=== PATIENT | female | born 1950 | race Caucasian/White ===

== ENCOUNTER 2017-11-13 10:50 | Emergency (ER) | payer OTHER, MEDICAID ==
[~2017-11-13] VITALS: Ht 165.1 cm; Wt 81.6 kg
[2017-11-13 10:50] VITALS: BP 178/72
[~2017-11-13 10:50] MED LIST: DEPER500 PO; LISI-420 PO; OXYB5TAB21 PO
[2017-11-13] MEDS ORDERED: LORazepam 2 MG/ML VIAL IVP ONE (11:55)
[2017-11-13 12:08] LABS: BASOPHILS # (AUTO) 0.1 K/uL (0.00-0.22); EOSINOPHILS # (AUTO) 0.1 K/uL (0-0.4); EOSINOPHILS % (AUTO) 1.9 % (0.0-4.0); HEMATOCRIT 38.8 % (36-48); HEMOGLOBIN 13.4 g/dL (12.0-16.0); LYMPHOCYTES # (AUTO) 1.5 K/uL (2.5-16.5); LYMPHOCYTES % (AUTO) 25.6 % (20.5-51.1); MEAN CORPUSCULAR HEMOGLOBIN 32 pg (27-31); MEAN CORPUSCULAR HGB CONC 35 g/dL (33-37); MONOCYTES # (AUTO) 0.5 K/uL (0.8-1.0); MONOCYTES % (AUTO) 8.6 % (1.7-9.3); NEUTROPHILS # (AUTO) 3.6 K/uL (1.8-7.7); NEUTROPHILS % (AUTO) 62.9 % (42.2-75.2); PLATELET COUNT (AUTO) 176 K/uL (140-450); RED BLOOD CELL COUNT(AUTO) 4.18 MIL/uL (4.20-5.40); RED CELL DISTRIBUTION WIDTH 13.7 % (11.6-13.7); WHITE BLOOD COUNT (AUTO) 5.8 K/uL (4.8-10.8)
[2017-11-13 12:22] LABS: ANION GAP 13.5 (8-16); CARBON DIOXIDE 26.9 mmol/L (21-32); POTASSIUM 4.4 mmol/L (3.5-5.1)
[2017-11-13 12:25] LABS: APPEARANCE,URINE CLEAR (CLEAR); BILIRUBIN,URINE NEGATIVE (NEGATIVE); BLOOD, URINE NEGATIVE (NEGATIVE); COLOR,URINE YELLOW (YELLOW); LEUKOCYTE ESTERASE ,URINE NEGATIVE (NEGATIVE); NITRITE, URINE NEGATIVE (NEGATIVE); PH,URINE 7.5 (5.0-9.0); UGLUCOSE NEGATIVE (NEGATIVE)
[2017-11-13 12:35] LABS: PROTHROMBIN TIME 10.5 secs (10.8-13.4)
[2017-11-13 12:37] LABS: ALBUMIN 3.8 g/dL (3.4-5.0); FREE T4 (FREE THYROXINE) 1.03 ng/dL (0.76-1.46); THYROID STIMULATING HORMONE 5.34 uIU/mL (0.34-3.74); TOTAL BILIRUBIN 0.3 mg/dL (0.0-1.0)
[2017-11-13 13:28] VITALS: BP 107/62
== END 2017-11-13 13:28 | disposition home or self-care (01) ==
LOC: MED 10:50
DX: R06.4 Hyperventilation (principal); F41.0 Panic disorder [episodic paroxysmal anxiety]; I12.9 Hypertensive chronic kidney disease with stage 1 through stage 4 chronic kidney disease, or unspecified chronic kidney disease; N18.4 Chronic kidney disease, stage 4 (severe); F31.9 Bipolar disorder, unspecified; E03.9 Hypothyroidism, unspecified; Z86.73 Personal history of transient ischemic attack (TIA), and cerebral infarction without residual deficits; Z79.899 Other long term (current) drug therapy; Z88.5 Allergy status to narcotic agent
CPT/HCPCS: 36415; 36600; 71045; 80053; 81003; 81025; 82550; 82803; 84439; 84443; 84479; 84484; 85025; 85379; 85610; 85730; 93005; 96374; 99285; J2060

== ENCOUNTER 2018-07-08 11:47 | Inpatient (IN) | payer OTHER, MEDICAID ==
[~2018-07-08] VITALS: Ht 162.6 cm; Wt 85.3 kg
[2018-07-08 11:50] VITALS: BP 150/70
--- NOTE | 2018-07-08 12:05 | NUR ---
PT. BIB FOR L SIDED NON RADIATING CHEST PAIN X 1 HOUR AGO THAT LASTED 1 MIN AND DESCRIBED 5/ 10 SHARP PAIN, PT. STATES " I COULDNT TALK FOR THAT ONE MINUTE AND SALIVA WAS COMING OUT . DENIES ANY N/V/D. DENIES ANY CHEST PAIN AT THIS TIME. PT. WARM AND DRY TO TOUCH. RR EVEN AND UNLABORED. ABLE TO SPEAK IN CLEAR SPEECH AND FULL AND COMPLETE SENTENCES. L SIDED TREMORS DUE TO STROKE. PATIENT STATES SHE CURRENTLY FEELS "100% NORMAL" MED HX: HTN , STROKE ( 3 YEARS AGO) ALLERGIES : NONE
[2018-07-08] MEDS ORDERED: NACL 0.9% 500 ML IV SCH (12:09)
--- NOTE | 2018-07-08 12:35 | NUR ---
Note undone in EDM - 07/08/18 at 1235 by ANDREW PT. BIB FOR L SIDED NON RADIATING CHEST PAIN X 1 HOUR AGO THAT LASTED 1 MIN AND DESCRIBED 5/ 10 SHARP PAIN, PT. STATES " I COULDNT TALK FOR THAT ONE MINUTE AND SALIVA WAS COMING OUT . DENIES ANY N/V/D. DENIES ANY CHEST PAIN AT THIS TIME. PT. WARM AND DRY TO TOUCH. RR EVEN AND UNLABORED. ABLE TO SPEAK IN CLEAR SPEECH AND FULL AND COMPLETE SENTENCES. L SIDED TREMORS DUE TO STROKE. PATIENT STATES SHE CURRENTLY FEELS "100% NORMAL" MED HX: HTN , STROKE ( 3 YEARS AGO) ALLERGIES : NONE
[2018-07-08 13:11] LABS: EOSINOPHILS # (AUTO) 0.1 K/uL (0-0.4); LYMPHOCYTES # (AUTO) 1.4 K/uL (2.5-16.5); MEAN CORPUSCULAR HEMOGLOBIN 33 pg (27-31); MONOCYTES # (AUTO) 0.5 K/uL (0.8-1.0); NEUTROPHILS # (AUTO) 2.5 K/uL (1.8-7.7); RED CELL DISTRIBUTION WIDTH 13.6 % (11.6-13.7); WHITE BLOOD COUNT (AUTO) 4.5 K/uL (4.8-10.8)
[2018-07-08 13:14] LABS: BASOPHILS % (AUTO) 0.5 % (0.0-2.0); EOSINOPHILS % (AUTO) 1.6 % (0.0-4.0); HEMATOCRIT 35.8 % (36-48); LYMPHOCYTES % (AUTO) 31.4 % (20.5-51.1); MEAN CORPUSCULAR HGB CONC 34 g/dL (33-37); MONOCYTES % (AUTO) 10.9 % (1.7-9.3); NEUTROPHILS % (AUTO) 55.6 % (42.2-75.2); PLATELET COUNT (AUTO) 165 K/uL (140-450); RED BLOOD CELL COUNT(AUTO) 3.69 MIL/uL (4.20-5.40)
[2018-07-08 13:24] LABS: ANION GAP 8.8 (8-16); CARBON DIOXIDE 32.1 mmol/L (21-32); CREATININE 1.6 mg/dL (0.6-1.3); POTASSIUM 3.9 mmol/L (3.5-5.1); PROTHROMBIN TIME 10.7 secs (10.8-13.4)
--- NOTE | 2018-07-08 13:27 | NUR ---
PATIENT AMB WITH STEADY GAIT TO RESTROOM ESCORTED BY HER SON. GIVEN CUP TO COLLECT URINE SAMPLE.
[2018-07-08 13:29] LABS: ALBUMIN 3.5 g/dL (3.4-5.0); TOTAL BILIRUBIN 0.4 mg/dL (0.0-1.0)
[2018-07-08] MEDS ORDERED: ASPIRIN 81 MG TAB.CHEW PO ONE (14:05)
[2018-07-08] MEDS ORDERED: NACL 0.9% 2,000 ML IV ONE (14:05)
--- NOTE | 2018-07-08 14:30 | NUR ---
FAMILY AT BEDSIDE. PATIENT STABLE.
[2018-07-08] MEDS ORDERED: KETOROLAC 15 MG/ML VIAL IVP PRN (14:50)
[2018-07-08] MEDS ORDERED: DOCUSATE SODIUM 100 MG GELCAP PO PRN (14:50)
[2018-07-08] MEDS ORDERED: ONDANSETRON 4 MG/2 ML VIAL IM/IVP PRN (14:50)
[2018-07-08] MEDS ORDERED: ACETAMINOPHEN 325 MG TAB PO PRN (14:50)
--- NOTE | 2018-07-08 15:00 | NUR ---
PATIENT GIVEN SOME CRACKERS AND PUDDING UPON REQUEST FOR FOOD.
[2018-07-08] MEDS ORDERED: ATA25 PO (15:33)
[2018-07-08] MEDS ORDERED: METO25TA14 PO (15:33)
[2018-07-08] MEDS ORDERED: APIX5TAB PO (15:33)
[2018-07-08 15:43] VITALS: BP 144/71
--- NOTE | 2018-07-08 15:43 | NUR ---
RECEIVED BEDSIDE REPORT FROM ER NURSE SAADIA. PT STABLE, AWAKE, AND ALERT AND ORIENTED X4. PT AMBULATING WITH STEADY GAIT. DENIES PAIN OR SOB. NO SIGNS OF DISTRESS NOTED. NO REDNESS, SWELLING, OR INFLAMMATION NOTED ON IV SITE. BED IN LOWEST POSITION. CALL SHUKLA WITHIN REACH. SAFETY MEASURES IN PLACE. PLAN OF CARE REVIEWED.
--- NOTE | 2018-07-08 15:45 | NUR ---
PATIENT TRANSPROTED WITH MONITORING BY EMT AND RN IN [facility] TO BED 121-A. REPORT GIVEN TO RN TANIKA COCHRAN FOR CONTINUED CARE UNDER THE CARE OF DR ECHEVERRIA. STABLE DURING TRANSFER.
[2018-07-08 15:46] VITALS: BP 144/69
[2018-07-08 15:49] VITALS: BP 144/65
[2018-07-08 16:10] LABS: CHOL/HDL RATIO 3.5 (1-4.5); PHOSPHORUS 2.8 mg/dL (2.5-4.9)
[2018-07-08 16:36] LABS: MAGNESIUM 1.8 mg/dL (1.8-2.4); THYROID STIMULATING HORMONE 4.39 uIU/mL (0.34-3.74)
--- NOTE | 2018-07-08 17:15 | NUR ---
PT REPORTED 10 SECOND EPISODE OF DYSPHAGIA. NEURO ASSESSMENT PERFORMED. REPORTED TO MD. PHYSICIAN TO SEE PATIENT.
[2018-07-08] MEDS ORDERED: ATI.5 PO (17:20)
[2018-07-08] MEDS ORDERED: DIVA250E1 PO (17:23)
[2018-07-08] MEDS ORDERED: ATORVASTATIN 20 MG TAB PO SCH (17:25)
[2018-07-08] MEDS ORDERED: ECOTRIN 81 MG TABEC PO SCH ×2 (17:25→18:50)
[2018-07-08] MEDS ORDERED: LISINOPRIL 20 MG TAB PO SCH (17:25)
[2018-07-08] MEDS ORDERED: MECLIZINE 25 MG TAB PO PRN (17:30)
--- NOTE | 2018-07-08 18:50 | NUR ---
ADMINISTERED SCHEDULED MEDICATIONS. PT TOLERATED WELL. SON AT BEDSIDE.
[2018-07-08] MEDS: NACL 0.9% 1,000 ML IV SCH (18:57)
--- NOTE | 2018-07-08 19:10 | NUR ---
ENDORSED PT TO ZAHRA TAYLOR FOR CONTINUITY OF CARE. PT STABLE, AWAKE, AND ALERT. SON AT THE BEDSIDE.
--- NOTE | 2018-07-08 19:11 | NUR ---
RECEIVED BEDSIDE REPORT FROM DAY SHIFT NURSE TANIKA RN, PT STABLE, NO DISTRESS NOTED, IV TO L AC 20G PATENT, INTACT, INFUSING NS @ 80ML/HR, PT ON ROOM AIR, NO SOB NOTED, FAMILY AT BEDSIDE, INITIAL ASSESSMENT DONE, ALL SAFETY PRECAUTION MET, CALL LIGHT WITHIN REACH, WILL CONTINUE TO MONITOR.
[2018-07-08] MEDS: LISINOPRIL 20 MG TAB PO SCH (19:16)
[2018-07-08] MEDS: ATORVASTATIN 20 MG TAB PO SCH (19:16)
[2018-07-08 20:00] VITALS: BP 151/73
[2018-07-08] MEDS: LORazepam 0.5 MG TAB PO SCH (20:44)
[2018-07-08] MEDS: METOPROLOL 25 MG TAB PO SCH (20:45)
[2018-07-08] MEDS: DIVALPROEX 250 MG TABEC PO SCH (20:45)
[2018-07-08] MEDS: APIXABAN 2.5 MG TAB PO SCH (20:50)
--- NOTE | 2018-07-08 20:50 | NUR ---
DUE MEDICATION ADMINISTER, PT TOLERATED WELL, NO DISTRESS NOTED, CALL LIGHT WITHIN REACH, WILL CONTINUE TO MONITOR.
[2018-07-09] VITALS: BP 135/61
--- NOTE | 2018-07-09 00:10 | NUR ---
CHECKED ON PT, PT SLEEPING, V/S TAKEN, WNL, CALL LIGHT WITHIN REACH, WILL CONTINUE TO MONITOR.
--- NOTE | 2018-07-09 02:17 | NUR ---
CHECKED ON PT, PT SLEEPING, NO DISTRESS NOTED, CALL LIGHT WITHIN REACH, WILL CONTINUE TO MONITOR.
[2018-07-09] MEDS: NACL 0.9% 1,000 ML IV SCH ×3 (03:16→21:04)
--- NOTE | 2018-07-09 03:55 | NUR ---
CHECKED ON PT, PT SLEEPING, NO DISTRESS NOTED, V/S TAKEN, WNL, CALL LIGHT WITHIN REACH, WILL CONTINUE TO MONITOR.
[2018-07-09 04:00] VITALS: BP 110/71
--- NOTE | 2018-07-09 07:20 | NUR ---
ENDORSED PT TO DAY SHIFT NURSE TIFFANY RN, PT STABLE, NO DISTRESS NOTED, CALL LIGHT WITHIN REACH
--- NOTE | 2018-07-09 07:21 | NUR ---
received bedside report from restaurant shift leader nurse. patient is awake, alert and orientedx4. no signs of distress on room air. skin is intact. fall risk protocol d/t weakness, hx cva and tremors. patient is continent. iv on l ac 20g infusing ns at 80. clean, dry and intact. tele monitor in place. bed in low position. call light within reach. will continue to monitor the patient.
[2018-07-09 08:00] VITALS: BP 136/70
--- NOTE | 2018-07-09 09:00 | NUR ---
PATIENT SITTING IN BED. NO SIGNS OF DISTRESS. WILL CONTINUE TO MONITOR THE PATIENT
[2018-07-09] MEDS: ECOTRIN 81 MG TABEC PO SCH (10:35)
[2018-07-09] MEDS: METOPROLOL 25 MG TAB PO SCH ×2 (10:37→21:00)
[2018-07-09] MEDS: APIXABAN 2.5 MG TAB PO SCH ×2 (10:38→21:03)
[2018-07-09] MEDS: DIVALPROEX 250 MG TABEC PO SCH ×2 (10:39→20:59)
[2018-07-09] MEDS: OXYBUTYNIN 5 MG TAB PO SCH (10:40)
[2018-07-09] MEDS: ATORVASTATIN 20 MG TAB PO SCH (10:40)
[2018-07-09] MEDS: LISINOPRIL 20 MG TAB PO SCH (10:40)
--- NOTE | 2018-07-09 10:47 | NUR ---
ADMINISTERED MEDS. PATIENT TOLERATED WELL. SHE TOOK ONE BY ONE. WILL CONTINUE TO MONITOR THE PATIENT. PATIENTS PHONE IS CHARGING AT THE NURSING STATION
[2018-07-09 12:00] VITALS: BP 128/62
--- NOTE | 2018-07-09 12:00 | NUR ---
PATIENT ACCIDENTALLY URINATED ON THE FLOOR ON THE WAY TO THE RESTROOM. CLEANSED PATIENT. GAVE AN UNDERWEAR AND NEW SOCKS. HOUSE KEEPING IN TO CLEAN THE FLOOR
[2018-07-09] MEDS ORDERED: ASPIRIN 325 MG TAB PO SCH (13:56)
--- NOTE | 2018-07-09 14:00 | NUR ---
family at bedside believe patient has slurred speech. patient tends to be a little slurred, dr arana in to see the patient.
--- NOTE | 2018-07-09 15:20 | NUR ---
administered as scheduled aspirin. patient tolerated well. patient ambulated to the restroom and back. told her next time to call because she has tremors and at risk for falls. i told her she needs to ambulate w assistance. she agreed.
[2018-07-09 16:00] VITALS: BP 113/62
--- NOTE | 2018-07-09 17:38 | NUR ---
PATIENT IS CURRENTLY EATING. NO SIGNS OF DISTRESS. WILL CONTINUE TO MONITOR THE PATIENT
--- NOTE | 2018-07-09 19:29 | NUR ---
GAVE BEDSIDE REPORT TO BANKER MASON NURSE. PATIENT ENDORSED IN STABLE CONDITION
--- NOTE | 2018-07-09 19:30 | NUR ---
RECEIVED BEDSIDE REPORT FROM DAY SHIFT NURSE TIFFANY RN, PT STABLE NO DISTRESS NOTED, IV TO L AC 20G PATENT, INTACT, INFUSING NS @ 80 ML/HR, INFUSING WELL, PT ON ROOM AIR, NO SOB NOTED, NO C/O PAIN, INITIAL ASSESSMENT DONE, ALL SAFETY PRECAUTION MET, CALL LIGHT WITHIN REACH, WILL CONTINUE TO MONITOR.
[2018-07-09 20:00] VITALS: BP 152/74
[2018-07-09] MEDS: LORazepam 0.5 MG TAB PO SCH (21:01)
--- NOTE | 2018-07-09 21:04 | NUR ---
DUE MEDICATION ADMINISTERED, PT TOLERATED WELL, NO DISTRESS NOTED, CALL LIGHT WITHIN REACH, WILL CONTINUE TO MONITOR.
--- NOTE | 2018-07-09 23:23 | NUR ---
CHECKED ON PT, PT SLEEPING, V/S TAKEN, WNL, NO DISTRESS NOTED, CALL LIGHT WITHIN REACH, WILL CONTINUE TO MONITOR.
[2018-07-10] VITALS: BP 128/71
[2018-07-10] MEDS ORDERED: amLODIPine 5 MG TAB PO SCH (03:25)
--- NOTE | 2018-07-10 03:43 | NUR ---
CHECKED ON PT, V/S TAKEN, PT STATED HAVING HEADACHE 5/10, PAIN MEDICATION PER DR ORDER ADMINISTERED, PT TOLERATED WELL, NO DISTRESS NOTED, CALL LIGHT WITHIN REACH, WILL CONTINUE TO MONITOR.
[2018-07-10 04:00] VITALS: BP 155/78
--- NOTE | 2018-07-10 07:22 | NUR ---
ENDORSED PT TO DAY SHIFT NURSE NICK RN, PT STABLE, NO DISTRESS NOTED, CALL LIGHT WITHIN REACH.
--- NOTE | 2018-07-10 07:23 | NUR ---
REPORT RECEIVED FROM FIRE FIGHTER CRASH FIRE AND RESCUE NURSE, PT AWAKE WITH EYES OPEN, RESP EVEN UNLABORED, SKIN WARM DRY COLOR WNL, PT APPEARS COMFORTABLE IN NAD, PLAN OF CARE REVIEWED, NO IMMEDIATE NEEDS AT THIS TIME, ALL SAFETY MEASURES IN PLACE, WILL CONTINUE TO MONITOR.
--- NOTE | 2018-07-10 07:38 | NUR ---
ENDORSED TO AM SHIFT FOR CONTINUITY OF CARE. PT IN STABLE CONDITION. Addendum: 07/11/18 at 0907 by Maryann Owen RN DELETE NOTE. WRONG DATE
[2018-07-10 07:55] LABS: BASOPHILS % (AUTO) 0.2 % (0.0-2.0); EOSINOPHILS # (AUTO) 0.1 K/uL (0-0.4); EOSINOPHILS % (AUTO) 1.3 % (0.0-4.0); HEMATOCRIT 34.8 % (36-48); HEMOGLOBIN 11.6 g/dL (12.0-16.0); LYMPHOCYTES # (AUTO) 1.3 K/uL (2.5-16.5); MEAN CORPUSCULAR HEMOGLOBIN 32 pg (27-31); MEAN CORPUSCULAR HGB CONC 33 g/dL (33-37); MEAN CORPUSCULAR VOLUME 96.9 fL (80-94); MONOCYTES # (AUTO) 0.8 K/uL (0.8-1.0); MONOCYTES % (AUTO) 9.8 % (1.7-9.3); NEUTROPHILS # (AUTO) 6.3 K/uL (1.8-7.7); NEUTROPHILS % (AUTO) 73.7 % (42.2-75.2); PLATELET COUNT (AUTO) 131 K/uL (140-450); RED BLOOD CELL COUNT(AUTO) 3.59 MIL/uL (4.20-5.40); RED CELL DISTRIBUTION WIDTH 13.5 % (11.6-13.7); WHITE BLOOD COUNT (AUTO) 8.6 K/uL (4.8-10.8)
[2018-07-10 08:00] VITALS: BP 173/88
--- NOTE | 2018-07-10 08:05 | NUR ---
PT EATING BREAKFAST WITH SON'T ASSISTANCE, PT SWALLOWS WELL WITHOUT PROBLEM, NO COUGHING OR CHOCKING NOTED, PT AOX4, SLOW SPEECH, NO FACIAL DROOPING NOTED, FACIAL MOVEMENTS SYMETRICAL, RIGHT HAND SLIGHTLY WEAKER HEEL SEAM RUBBER. WALKS WITH SLOW STEADY GAIT TO BATHROOM.
[2018-07-10 08:08] LABS: ANION GAP 10.8 (8-16); CARBON DIOXIDE 24.1 mmol/L (21-32); CREATININE 1.2 mg/dL (0.6-1.3); POTASSIUM 3.9 mmol/L (3.5-5.1)
[2018-07-10 08:09] LABS: MAGNESIUM 1.5 mg/dL (1.8-2.4); PHOSPHORUS 2.7 mg/dL (2.5-4.9)
--- NOTE | 2018-07-10 08:28 | NUR ---
PATIENT HAS BEEN SCREENED AND CATEGORIZED MODERATE NUTRITION RISK. PATIENT WILL BE SEEN WITHIN 3-5 DAYS OF ADMISSION. 07/11/[address]
[2018-07-10] MEDS: APIXABAN 2.5 MG TAB PO SCH ×2 (08:38→21:42)
[2018-07-10] MEDS: METOPROLOL 25 MG TAB PO SCH ×2 (08:38→21:41)
[2018-07-10] MEDS: LISINOPRIL 20 MG TAB PO SCH (08:39)
[2018-07-10] MEDS: ECOTRIN 81 MG TABEC PO SCH (08:39)
[2018-07-10] MEDS: OXYBUTYNIN 5 MG TAB PO SCH (08:39)
[2018-07-10] MEDS: ATORVASTATIN 20 MG TAB PO SCH (08:39)
[2018-07-10] MEDS: DIVALPROEX 250 MG TABEC PO SCH ×2 (08:40→21:43)
--- NOTE | 2018-07-10 08:45 | NUR ---
AM MEDS GIVEN, JACQUE PILLS WITHOUT PROBLEM. MRI QUESTIONERS DONE, CONTRAST CONSENT SIGNED.
[2018-07-10 12:00] VITALS: BP 142/66
--- NOTE | 2018-07-10 12:37 | NUR ---
CM NOTE RECEIVED ORDER FOR MRI OF THE BRAIN. CALLED AND LEFT VM FOR BRANCH OR DEPARTMENT CHIEF LIBRARIAN MARGARET, NO CALL BACK. PER BRAYAN OF [facility] MRI DEPT, BRANCH OR DEPARTMENT CHIEF LIBRARIAN MARGARET IS NOT AVAILABLE THIS WEEK, AND THEIR PICK UP ATTENDANT IS NOT AVAILABLE UNTIL JULY 12, 2018. FAXED FACESHEET, ORDER FOR MRI OF THE BRAIN, MRI MEDICAL HISTORY FORM, MRI PATIENT QUESTIONNAIRE, LAB RESULTS FOR BUN CREA AND GFR TO [facility] MRI DEPT [phone]. ROBERT OF [facility] MRI DEPT PH# [phone] AWARE OF PATIENT HAVING METAL DUE TO BILATERAL KNEE REPLACEMENTS AND PER ROBERT, THEIR PICK UP ATTENDANT HAS REVIEWED THE MRI MEDICAL HISTORY FORM, MRI PATIENT QUESTIONNAIRE, AND LAB RESULTS FOR BUN CREA AND GFR. PER ROBERT, THEIR PICK UP ATTENDANT WILL BE ABLE TO DO THE MRI OF THE BRAIN WITH THE EARLIEST AVAILABLE SCHEDULE AVAILABLE ON JULY 11, 2018 AT 8:[address] DEYANIRA JONES AWARE. PER DESTINEE OF [facility] PH# [phone], THE PATIENT WILL BE PICKED UP ACLS TRANSPORT AT 7:15 AM ON JULY 11, 2018 GOING TO [facility] FOR MRI OF THE BRAIN AT 8:30 AM, TO PASS BY THEIR ER FIRST, WAIT IN RETURN. [facility] TRANSPORTATION VOUCHER FORM FAXED TO [facility] [phone]. CHARGE NURSE LAM SEWELL.
--- NOTE | 2018-07-10 14:02 | NUR ---
S.T. BEDSIDE SWALLOW EVAL COMPLETED See report for details. Pt presents with minimal oral dysphagia c/b prolonged mastication. However, no overt s/s aspiration were observed w/ p.o. trials solids and thin liquids. Recommend: 1) Continue regular diet, thin liquids ok. 2) P.O. meds as tolerated. No further tx indicated at this time. DC to ns care. Time 5721-3444
--- NOTE | 2018-07-10 14:20 | NUR ---
TALITA NOTE RECEIVED A CALL FROM [facility] BRICK BURNER MEL PH# [phone] EXT [phone] REQUESTING TO FAX HER AGAIN THE LATEST BUN, CREATININE AND GFR RESULTS. FAXED AGAIN TO [facility] MRI DEPT [phone] THE LATEST BUN, CREATININE AND GFR RESULTS. DR. DEYANIRA JONES AWARE.
[2018-07-10] MEDS ORDERED: MAG SULF 2000 MG/WATER PREMIX 50 ML IV SCH (15:00)
--- NOTE | 2018-07-10 15:32 | NUR ---
PER DR MCMILLAN, OK TO TAKE OFF TELE MONITOR TO TAKE SHOWER, PT ESCORTED TO SHOWER, PT AMBULATES WITH STEADY GAIT, DENIES ANY DIZZINESS OR LIGHT HEADEDNESS. DAUGHTER ASSISTING PT WITH SHOWER.
[2018-07-10 16:00] VITALS: BP 153/67
--- NOTE | 2018-07-10 16:00 | NUR ---
BACK FROM SHOWER, PT RECONNECTED TO TELE, IVF RESTARTED.
--- NOTE | 2018-07-10 18:05 | NUR ---
PT AWAKE ALERT, SPEAKS WITH SLURRED SPEECH, OX4, RESP EVEN UNLABORED, SKIN WARM DRY COLOR WNL, DENIES PAIN OR DISCOMFORT, PT ABLE TO GET OUT OF BED WITH MINIMAL ASSIST, IVF INFUSING, IV ISTE WNL, PT DENIES ANY IMMEDIATE NEEDS, WILL CONTINUE TO MONITOR.
--- NOTE | 2018-07-10 19:22 | NUR ---
REPORT GIVEN TO COMPLIANCE COORDINATOR NURSE, PT IN STABLE CONDITION.
--- NOTE | 2018-07-10 19:23 | NUR ---
REPORT RECEIVED AM NURSE, PT AWAKE, AMBULATORY, CAN AMBULATE TO THE BATHROOM. BUT ALSO PLACED A BEDSIDE COMMODE FOR COMFORT TONIGHT. RESP EVEN UNLABORED, SKIN WARM DRY COLOR WNL,.HAS NO COMPLAINTS OF CHEST PAIN, PLACED IN LOW BED POSITION, MEASURES IN PLACE, WILL CONTINUE TO MONITOR.
[2018-07-10 20:00] VITALS: BP 155/71
--- NOTE | 2018-07-10 21:00 | NUR ---
PT MEDICATED ABLE TO TOLERATE MEDS WELL, CAN SWALLOW.
[2018-07-10] MEDS: LORazepam 0.5 MG TAB PO SCH (21:43)
--- NOTE | 2018-07-10 22:00 | NUR ---
PT GETTING READY FOR BED, PLACED IN A LOW BED POSITION WITH BED ALARMS ON
[2018-07-10] MEDS: NACL 0.9% 1,000 ML IV SCH (22:31)
[2018-07-11] VITALS: BP 130/65
--- NOTE | 2018-07-11 02:00 | NUR ---
PT VOIDED TOTAL 2X AT BEDSIDE COMMODE, YELLOW URINE, MODERATE IN AMOUNT.ASSISTED TO BED. FALL RISK IN PLACE
[2018-07-11 04:09] VITALS: BP 140/66
[2018-07-11 06:20] LABS: BASOPHILS % (AUTO) 0.5 % (0.0-2.0); EOSINOPHILS # (AUTO) 0.2 K/uL (0-0.4); HEMATOCRIT 31.4 % (36-48); HEMOGLOBIN 10.7 g/dL (12.0-16.0); LYMPHOCYTES # (AUTO) 1.7 K/uL (2.5-16.5); MEAN CORPUSCULAR HEMOGLOBIN 33 pg (27-31); MEAN CORPUSCULAR HGB CONC 34 g/dL (33-37); MEAN CORPUSCULAR VOLUME 96.7 fL (80-94); MONOCYTES # (AUTO) 0.6 K/uL (0.8-1.0); MONOCYTES % (AUTO) 8.8 % (1.7-9.3); NEUTROPHILS # (AUTO) 4.7 K/uL (1.8-7.7); NEUTROPHILS % (AUTO) 64.7 % (42.2-75.2); PLATELET COUNT (AUTO) 126 K/uL (140-450); RED BLOOD CELL COUNT(AUTO) 3.25 MIL/uL (4.20-5.40); RED CELL DISTRIBUTION WIDTH 13.5 % (11.6-13.7); WHITE BLOOD COUNT (AUTO) 7.3 K/uL (4.8-10.8)
[2018-07-11 06:26] LABS: ANION GAP 12.6 (8-16); CARBON DIOXIDE 26.4 mmol/L (21-32); CREATININE 1.3 mg/dL (0.6-1.3)
[2018-07-11 06:42] LABS: PHOSPHORUS 3.6 mg/dL (2.5-4.9)
--- NOTE | 2018-07-11 07:28 | NUR ---
ENDORSED TO AM SHIFT FOR CONTINUITY OF CARE. PT IN STABLE CONDITION.
--- NOTE | 2018-07-11 07:41 | NUR ---
PT PICKED UP BY [facility] FOR TRANSPORT TO [place] FOR MRI.
[2018-07-11] MEDS ORDERED: DIVALPROEX 250 MG TABEC PO SCH (09:00)
--- NOTE | 2018-07-11 10:54 | NUR ---
PT RETURNED FROM [place] AFTER MRI. PT RESTING IN BED COMFORTABLY. ALL SAFETY MEASURES IN PLACE.
[2018-07-11 11:15] VITALS: BP 187/78
[2018-07-11] MEDS: ECOTRIN 81 MG TABEC PO SCH (11:18)
[2018-07-11] MEDS: APIXABAN 2.5 MG TAB PO SCH (11:23)
[2018-07-11] MEDS: ATORVASTATIN 20 MG TAB PO SCH (11:24)
[2018-07-11] MEDS: METOPROLOL 25 MG TAB PO SCH (11:28)
[2018-07-11] MEDS: OXYBUTYNIN 5 MG TAB PO SCH (11:29)
[2018-07-11] MEDS: LISINOPRIL 20 MG TAB PO SCH (11:34)
--- NOTE | 2018-07-11 11:50 | NUR ---
PT ATE BREAKFAST AND TOOK SHOWER. ESCORTED BY DAUGHTER AND GRANDDAUGHTER
[2018-07-11] MEDS ORDERED: DIVA250E1 PO (14:57)
[2018-07-11] MEDS ORDERED: LISI-420 PO (14:57)
[2018-07-11] MEDS ORDERED: ATOR20TA40 PO (14:57)
[2018-07-11 15:12] VITALS: BP 142/60
--- NOTE | 2018-07-11 15:25 | NUR ---
CM NOTE RECEIVED ORDER FOR HOME HEALTH WITH [facility] FOR PT AND OT. FAXED FACESHEET, ORDER FOR HH, LIST OF MEDS, PT EVAL NOTES TO [facility]. PER AMBER OF [facility]# [phone], THEY ARE ACCEPTING THE PATIENT AND THEY HAVE A NURSE TO SEE THE PATIENT TOMORROW. DR. DEYANIRA JONES AND NICK SWEENEY AWARE.
--- NOTE | 2018-07-11 16:55 | NUR ---
DC INSTRUCTIONS WENT OVER WITH PT AND HER SON. PT AND HER SON ACKNOWLEDGED UNDERSTANDING ALL INSTRUCTIONS GIVEN. IV IN LEFT FOREARM DC. CATH TIP INTACT. BLEEDING CONTROLLED. ASSISTED PT TO CAR IN WHEELCHAIR. PT LEFT W ALL HER BELONGINGS
== END 2018-07-11 16:55 | disposition home health service (06) | DRG 73 ==
LOC: MED 11:47 → MTU 14:52
PROVIDERS: ADMIT General Practice; ATTEND General Practice
PROC: 4A00X4Z Measurement of Central Nervous Electrical Activity, External Approach (ICD-10-PCS; principal; 2018-07-11)
DX: G90.8 Other disorders of autonomic nervous system (principal); N17.0 Acute kidney failure with tubular necrosis; I24.8 Other forms of acute ischemic heart disease; I69.354 Hemiplegia and hemiparesis following cerebral infarction affecting left non-dominant side; I10 Essential (primary) hypertension; E78.5 Hyperlipidemia, unspecified; E03.9 Hypothyroidism, unspecified; F31.9 Bipolar disorder, unspecified; F41.9 Anxiety disorder, unspecified; R13.19 Other dysphagia; Z96.653 Presence of artificial knee joint, bilateral; Z66 Do not resuscitate; R32 Unspecified urinary incontinence; E86.0 Dehydration; N32.81 Overactive bladder; E83.42 Hypomagnesemia; D64.9 Anemia, unspecified; D32.0 Benign neoplasm of cerebral meninges; I65.23 Occlusion and stenosis of bilateral carotid arteries; Z88.5 Allergy status to narcotic agent; Z79.899 Other long term (current) drug therapy; Z87.442 Personal history of urinary calculi; Z82.49 Family history of ischemic heart disease and other diseases of the circulatory system; G40.909 Epilepsy, unspecified, not intractable, without status epilepticus
CPT/HCPCS: 36415; 70450; 71045; 80048; 80053; 82150; 83036; 83605; 83690; 83735; 83880; 84100; 84439; 84443; 84484; 85025; 85610; 85730; 87040; 87081; 92610; 93005; 93880; 95816; 96360; 97110; 97116; 97530; 99285; J1885; J3475; J7030; Q0092

== ENCOUNTER 2018-08-10 09:40 | Emergency (ER) | payer OTHER, MEDICAID ==
[~2018-08-10] VITALS: Ht 165.1 cm; Wt 85.3 kg
[~2018-08-10 09:40] MED LIST changes: +APIX5TAB PO; +ATI.5 PO; +ATOR20TA40 PO; -DEPER500 PO; +DIVA250E1 PO; +METO25TA14 PO
[2018-08-10 10:10] VITALS: BP 130/64
--- NOTE | 2018-08-10 10:15 | NUR ---
68Y/F BIB WITH C/O PRODUCTIVE COUGH X 2 WKS, PT DENIES CHEST PAIN OR SOB. PT STATES SHE HAS A PROGRESSIVE COUGH DURING THE NIGHT WITH GREEN PHLEGM, KHAI WHEEZING HEARD IN THE LUNGS, PT SAT AT 99% AT THIS TIME, BED UP, VSS AT THIS TIME, ER MD MCFARLANE AND NOTIFIED OF PT STATUS.
[2018-08-10 10:44] LABS: BASOPHILS % (AUTO) 0.6 % (0.0-2.0); EOSINOPHILS # (AUTO) 0.1 K/uL (0-0.4); EOSINOPHILS % (AUTO) 1.5 % (0.0-4.0); HEMATOCRIT 36.7 % (36-48); HEMOGLOBIN 12.6 g/dL (12.0-16.0); LYMPHOCYTES # (AUTO) 1.6 K/uL (2.5-16.5); LYMPHOCYTES % (AUTO) 25.8 % (20.5-51.1); MEAN CORPUSCULAR HEMOGLOBIN 33 pg (27-31); MEAN CORPUSCULAR HGB CONC 34 g/dL (33-37); MEAN CORPUSCULAR VOLUME 95.6 fL (80-94); MONOCYTES # (AUTO) 0.6 K/uL (0.8-1.0); MONOCYTES % (AUTO) 9.8 % (1.7-9.3); NEUTROPHILS # (AUTO) 3.9 K/uL (1.8-7.7); NEUTROPHILS % (AUTO) 62.3 % (42.2-75.2); PLATELET COUNT (AUTO) 187 K/uL (140-450); RED BLOOD CELL COUNT(AUTO) 3.84 MIL/uL (4.20-5.40); RED CELL DISTRIBUTION WIDTH 14.4 % (11.6-13.7); WHITE BLOOD COUNT (AUTO) 6.2 K/uL (4.8-10.8)
[2018-08-10 10:54] LABS: ANION GAP 12.5 (8-16); CARBON DIOXIDE 28.6 mmol/L (21-32); CREATININE 1.6 mg/dL (0.6-1.3); POTASSIUM 4.1 mmol/L (3.5-5.1)
[2018-08-10 11:00] LABS: ALBUMIN 3.3 g/dL (3.4-5.0); TOTAL BILIRUBIN 0.6 mg/dL (0.0-1.0)
[2018-08-10] MEDS ORDERED: ALBUTEROL SULFATE/IPRATROPIU 3 ML SOL IH ONE (11:10)
--- NOTE | 2018-08-10 11:22 | NUR ---
[facility] THERAPY AND RESPIRATORY DRUG GIVEN ORDERED ENCOURAGED PATIENT FOR INTERMITTENT DEEP BREATHING DURING THERAPY
[2018-08-10 12:20] VITALS: BP 158/52
--- NOTE | 2018-08-10 12:20 | NUR ---
Patient discharged with v/s stable. Written and verbal after care instructions given and explained. Patient alert, oriented and verbalized understanding of instructions. Ambulatory with steady gait. All questions addressed prior to discharge. ID band removed. Patient advised to follow up with PMD. Rx of ALBUTEROL, TESSALON given. Patient educated on indication of medication including possible reaction and side effects. Opportunity to ask questions provided and answered.
== END 2018-08-10 12:20 | disposition home or self-care (01) ==
LOC: MED 09:40
DX: J06.9 Acute upper respiratory infection, unspecified (principal); I10 Essential (primary) hypertension; E03.9 Hypothyroidism, unspecified; Z88.5 Allergy status to narcotic agent; Z79.899 Other long term (current) drug therapy; Z86.73 Personal history of transient ischemic attack (TIA), and cerebral infarction without residual deficits
CPT/HCPCS: 36415; 71045; 80053; 83880; 85025; 93005; 94640; 99284; J7620

== ENCOUNTER 2018-10-15 17:09 | Emergency (ER) | payer OTHER, MEDICAID ==
[~2018-10-15] VITALS: Ht 165.1 cm; Wt 80.9 kg
[2018-10-15 17:22] VITALS: BP 152/101
--- NOTE | 2018-10-15 17:24 | NUR ---
PATIENT AMBULATED TO ER BED 8.
--- NOTE | 2018-10-15 17:30 | NUR ---
PT IS A 68 Y/O FEMALE WHO PRESENTS TO THE ED FOR MED REFILL. PT STATES THAT SHE HAS DEPRESSION AND TAKES DEPAKOTE 750MG. PT DENIES SI AT THIS TIME. PT DENIES PAIN AT THIS TIME. PT DENIES CP, SOB, N/V/D. PT AWAKE AND ALERT, RR EVEN/UNLABORED. PT REPOSITIONED FOR COMFORT, BED IN LOWEST POSITION. ER MD DR. MORENO NOTIFIED. WILL CONTINUE TO MONITOR.
[2018-10-15] MEDS ORDERED: DIVALPROEX 500 MG TABEC PO ONE (17:40)
[2018-10-15 18:00] VITALS: BP 148/92
--- NOTE | 2018-10-15 18:00 | NUR ---
Patient discharged with v/s stable. Written and verbal after care instructions given and explained. Patient alert, oriented and verbalized understanding of instructions. Ambulatory with steady gait. All questions addressed prior to discharge. ID band removed. Patient advised to follow up with PMD. Rx of DEPAKOTE 750MG given. Patient educated on indication of medication including possible reaction and side effects. Opportunity to ask questions provided and answered.
== END 2018-10-15 18:00 | disposition home or self-care (01) ==
LOC: MED 17:09
DX: F32.9 Major depressive disorder, single episode, unspecified (principal); I10 Essential (primary) hypertension; E03.9 Hypothyroidism, unspecified; Z76.0 Encounter for issue of repeat prescription; Z86.73 Personal history of transient ischemic attack (TIA), and cerebral infarction without residual deficits; Z88.5 Allergy status to narcotic agent; Z79.899 Other long term (current) drug therapy
CPT/HCPCS: 99283

== ENCOUNTER 2019-05-13 12:03 | Emergency (ER) | payer OTHER, MEDICAID ==
[~2019-05-13] VITALS: Ht 165.1 cm; Wt 80.7 kg
[~2019-05-13 12:03] MED LIST changes: -OXYB5TAB21 PO; +OXYB5TAB43 PO
[2019-05-13 12:07] VITALS: BP 125/54
--- NOTE | 2019-05-13 13:14 | NUR ---
PT AMBULATED TO ER BED 07
--- NOTE | 2019-05-13 13:33 | NUR ---
69/F TO ED WITH L LEG/THIGH PAIN. DENIES INURY OR TRAUMA. REPORTS PAIN 9/10 THROBBING AND INTERMITTENET. NO OBVIOUS DEFORMITY NOTED. CMS INTACT. IN BED FOR MSE.
--- NOTE | 2019-05-13 13:58 | NUR ---
DR BALDERAS EXAMINING PT AT BEDSIDE
[2019-05-13] MEDS ORDERED: NACL 0.9% 1,000 ML IV ONE (14:08)
[2019-05-13] MEDS ORDERED: ONDANSETRON 4 MG/2 ML VIAL IVP ONE (14:10)
[2019-05-13] MEDS ORDERED: MORPHINE SULFATE 4 MG/ML SYR IVP ONE (14:10)
[2019-05-13] MEDS ORDERED: KETOROLAC 30 MG/ML VIAL IVP ONE (14:10)
--- NOTE | 2019-05-13 14:25 | NUR ---
U/S TECH AT BEDSIDE.
--- NOTE | 2019-05-13 14:30 | NUR ---
PT AMB W/ STEADY GAIT TO BATHROOM TO PROVIDE URINE SAMPLE.
--- NOTE | 2019-05-13 14:42 | NUR ---
EMT AT BEDSIDE FOR EKG.
[2019-05-13] MEDS ORDERED: LACTULOSE 20 GM/30 ML UDC PO ONE (15:45)
[2019-05-13] MEDS ORDERED: BISACODYL 10 MG SUPP RC ONE (15:45)
[2019-05-13 15:59] LABS: BASOPHILS % (AUTO) 0.3 % (0.0-2.0); EOSINOPHILS # (AUTO) 0.1 K/uL (0-0.4); EOSINOPHILS % (AUTO) 1.3 % (0.0-4.0); HEMATOCRIT 34.3 % (36-48); HEMOGLOBIN 11.5 g/dL (12.0-16.0); LYMPHOCYTES # (AUTO) 2.3 K/uL (2.5-16.5); LYMPHOCYTES % (AUTO) 21.1 % (20.5-51.1); MEAN CORPUSCULAR HEMOGLOBIN 33 pg (27-31); MEAN CORPUSCULAR HGB CONC 34 g/dL (33-37); MEAN CORPUSCULAR VOLUME 98.7 fL (80-94); MONOCYTES # (AUTO) 0.7 K/uL (0.8-1.0); MONOCYTES % (AUTO) 6.2 % (1.7-9.3); NEUTROPHILS # (AUTO) 7.6 K/uL (1.8-7.7); NEUTROPHILS % (AUTO) 71.1 % (42.2-75.2); PLATELET COUNT (AUTO) 169 K/uL (140-450); RED BLOOD CELL COUNT(AUTO) 3.47 MIL/uL (4.20-5.40); RED CELL DISTRIBUTION WIDTH 13.4 % (11.6-13.7); WHITE BLOOD COUNT (AUTO) 10.7 K/uL (4.8-10.8)
[2019-05-13 16:32] LABS: ALBUMIN 3.2 g/dL (3.4-5.0); ANION GAP 12.9 (8-16); CARBON DIOXIDE 28.5 mmol/L (21-32); CREATININE 1.5 mg/dL (0.6-1.3); POTASSIUM 4.4 mmol/L (3.5-5.1); TOTAL BILIRUBIN 0.5 mg/dL (0.0-1.0)
[2019-05-13 16:33] LABS: APPEARANCE,URINE CLEAR (CLEAR); BILIRUBIN,URINE NEGATIVE (NEGATIVE); BLOOD, URINE NEGATIVE (NEGATIVE); COLOR,URINE YELLOW (YELLOW); LEUKOCYTE ESTERASE ,URINE NEGATIVE (NEGATIVE); NITRITE, URINE NEGATIVE (NEGATIVE); UGLUCOSE NEGATIVE (NEGATIVE)
[2019-05-13 16:33] LABS: PROTHROMBIN TIME 10.5 secs (10.8-13.4)
--- NOTE | 2019-05-13 17:10 | NUR ---
IV removed, catheter intact and site benign. Applied folded 4x4 gauze and tape to stop bleeding.
[2019-05-13 17:15] VITALS: BP 132/56
--- NOTE | 2019-05-13 17:15 | NUR ---
Patient discharged with v/s stable. Written and verbal after care instructions given and explained. Patient alert, oriented and verbalized understanding of instructions. Ambulatory with steady gait. All questions addressed prior to discharge. ID band removed. Patient advised to follow up with PMD. Rx of TRAMADOL, COLACE given. Patient educated on indication of medication including possible reaction and side effects. Opportunity to ask questions provided and answered.
== END 2019-05-13 17:15 | disposition home or self-care (01) ==
LOC: MED 12:03
DX: M79.652 Pain in left thigh (principal); K59.09 Other constipation; I12.9 Hypertensive chronic kidney disease with stage 1 through stage 4 chronic kidney disease, or unspecified chronic kidney disease; N18.9 Chronic kidney disease, unspecified; R74.8 Abnormal levels of other serum enzymes; E03.9 Hypothyroidism, unspecified; Z86.73 Personal history of transient ischemic attack (TIA), and cerebral infarction without residual deficits; Z98.890 Other specified postprocedural states; Z79.899 Other long term (current) drug therapy
CPT/HCPCS: 36415; 74176; 80053; 81003; 82150; 83690; 83735; 83880; 84484; 85025; 85379; 85610; 85730; 93005; 93971; 96374; 96375; 99284; J1885; J2270; J2405; J7030; Q0092

== ENCOUNTER 2019-06-09 13:19 | Emergency (ER) | payer OTHER, MEDICAID ==
[~2019-06-09] VITALS: Ht 162.6 cm; Wt 81.2 kg
[2019-06-09 13:25] VITALS: BP 114/60
--- NOTE | 2019-06-09 14:18 | NUR ---
Patient ambulated to bed 11 with family. RN evaluating patient at bedside.
--- NOTE | 2019-06-09 14:20 | NUR ---
69 y/o f presents to ER c/o productive cough x1 month. Cough is productive with green phlegm. Pt reports she has a loss of appetite and chills. Pt currently afebrile. Denies any pain. Pt reports shortness of breath due to cough. HOB elevated, bed in lowest position, bed rail up x1. Waiting for ERMD to evaluate pt. Allergies: NKA Med hx: HTN
--- NOTE | 2019-06-09 14:32 | NUR ---
Influenza swab collected and given to phleb
--- NOTE | 2019-06-09 14:37 | NUR ---
Dr. Loyola evaluating pt at bedside
[2019-06-09 15:30] VITALS: BP 114/60
--- NOTE | 2019-06-09 15:30 | NUR ---
Patient discharged with v/s stable. Written and verbal after care instructions given and explained. Patient alert, oriented and verbalized understanding of instructions. Ambulatory with steady gait. All questions addressed prior to discharge. ID band removed. Patient advised to follow up with PMD. Rx of Promethazine 6.25mg and Azithromycin 250mg given. Patient educated on indication of medication including possible reaction and side effects. Opportunity to ask questions provided and answered.
== END 2019-06-09 15:30 | disposition home or self-care (01) ==
LOC: MED 13:19
DX: J20.9 Acute bronchitis, unspecified (principal); I10 Essential (primary) hypertension; E07.9 Disorder of thyroid, unspecified; I63.9 Cerebral infarction, unspecified; Z79.899 Other long term (current) drug therapy
CPT/HCPCS: 71045; 87804; 99284

== ENCOUNTER 2020-03-17 09:11 | Inpatient (IN) | payer OTHER, MEDICAID, SELFPAY ==
[~2020-03-17] VITALS: Ht 165.1 cm; Wt 77.6 kg
[2020-03-17 09:19] VITALS: BP 127/66
--- NOTE | 2020-03-17 09:27 | NUR ---
BIBS from home with c/o vaginal bleeding/cramping x 2 days, 05/25 pain A, A, Ox4, cooperative, NKDA, PMH HTN, HLD, overactive bladder, post-menapausal Resp even and unlabored, in NAD, VVS Moving all exts w/o difficulty, HOB elevated Awaiting evaluation by MD, will continue to monitor Given urine cup for urine sample
--- NOTE | 2020-03-17 09:28 | NUR ---
PT AMB TO BED 4
--- NOTE | 2020-03-17 09:47 | NUR ---
Patient mentioned to MD that she has a history of atrial fibrillation and is on a blood thinner
[2020-03-17] MEDS ORDERED: NACL 0.9% 1,000 ML IV ONE (09:50)
[2020-03-17 10:08] LABS: BASOPHILS % (AUTO) 0.9 % (0.0-2.0); EOSINOPHILS % (AUTO) 0.9 % (0.0-4.0); HEMATOCRIT 31.7 % (36-48); HEMOGLOBIN 10.9 g/dL (12.0-16.0); LYMPHOCYTES # (AUTO) 1.4 K/uL (2.5-16.5); LYMPHOCYTES % (AUTO) 30.9 % (20.5-51.1); MEAN CORPUSCULAR HEMOGLOBIN 34 pg (27-31); MEAN CORPUSCULAR HGB CONC 34 g/dL (33-37); MEAN CORPUSCULAR VOLUME 98.7 fL (80-94); MONOCYTES # (AUTO) 0.4 K/uL (0.8-1.0); MONOCYTES % (AUTO) 9.1 % (1.7-9.3); NEUTROPHILS # (AUTO) 2.7 K/uL (1.8-7.7); NEUTROPHILS % (AUTO) 58.2 % (42.2-75.2); PLATELET COUNT (AUTO) 184 K/uL (140-450); RED BLOOD CELL COUNT(AUTO) 3.21 MIL/uL (4.20-5.40); RED CELL DISTRIBUTION WIDTH 13.4 % (11.6-13.7); WHITE BLOOD COUNT (AUTO) 4.6 K/uL (4.8-10.8)
[2020-03-17 10:26] LABS: ANION GAP 13.5 (8-16); CARBON DIOXIDE 23.9 mmol/L (21-32); CREATININE 2.4 mg/dL (0.6-1.3); POTASSIUM 4.4 mmol/L (3.5-5.1)
[2020-03-17 10:31] LABS: ALBUMIN 3.3 g/dL (3.4-5.0); TOTAL BILIRUBIN 0.6 mg/dL (0.0-1.0)
[2020-03-17 11:14] LABS: APPEARANCE,URINE CLEAR (CLEAR); BILIRUBIN,URINE NEGATIVE (NEGATIVE); BLOOD, URINE 2+ (NEGATIVE); COLOR,URINE YELLOW (YELLOW); LEUKOCYTE ESTERASE ,URINE NEGATIVE (NEGATIVE); NITRITE, URINE NEGATIVE (NEGATIVE); PH,URINE 6.5 (5.0-9.0); UGLUCOSE TRACE (NEGATIVE)
[2020-03-17 11:17] LABS: WBC,URINE 0-5 /HPF (0-5)
[2020-03-17] MEDS ORDERED: POTASSIUM CHLORIDE 10 MEQ TABER PO PRN (12:05)
[2020-03-17] MEDS ORDERED: ONDANSETRON 4 MG/2 ML VIAL IM/IVP PRN (12:05)
[2020-03-17] MEDS ORDERED: LORazepam 2 MG/ML VIAL IM/IVP PRN (12:05)
[2020-03-17] MEDS ORDERED: ACETAMINOPHEN 325 MG TAB PO PRN (12:05)
[2020-03-17] MEDS ORDERED: DOCUSATE SODIUM 100 MG GELCAP PO PRN (12:05)
[2020-03-17] MEDS ORDERED: MAG SULF 2000 MG/WATER PREMIX 50 ML IV PRN (12:05)
[2020-03-17] MEDS ORDERED: HYDROcodone/APAP 5/325 MG 1 TAB TAB PO PRN (12:05)
[2020-03-17] MEDS ORDERED: MORPHINE SULFATE 2 MG/ML SYR IVP PRN (12:05)
[2020-03-17] MEDS ORDERED: ZOLPIDEM 5 MG TAB PO PRN (12:05)
--- NOTE | 2020-03-17 12:17 | NUR ---
Malorie swab collected and given to priscilla vaz at this time
--- NOTE | 2020-03-17 12:22 | NUR ---
windows server support technician at bedside.
[2020-03-17] MEDS ORDERED: AMLO10TA PO (12:29)
[2020-03-17] MEDS ORDERED: AMIO100T PO (12:29)
[2020-03-17] MEDS ORDERED: APR10 PO (12:29)
[2020-03-17 12:36] LABS: MAGNESIUM 2.2 mg/dL (1.8-2.4); PHOSPHORUS 3.7 mg/dL (2.5-4.9); THYROID STIMULATING HORMONE 2.03 uIU/mL (0.34-3.74)
[2020-03-17] MEDS: NACL 0.9% 1,000 ML IV SCH (12:45)
--- NOTE | 2020-03-17 12:49 | NUR ---
Dr. Hill is evaluating the patient at bedside.
--- NOTE | 2020-03-17 13:50 | NUR ---
Patient ambulated to the washroom to void, tolerated well
[2020-03-17 13:57] LABS: BARBITURATE, URINE NEGATIVE ng/ml (NEG <=200); BENZODIAZEPINE, URINE NEGATIVE ng/mL (NEG <=200); CANNABINOID, URINE NEGATIVE ng/mL (NEG <=50); COCAINE, URINE NEGATIVE ng/mL (NEG <=300); OPIATE, URINE NEGATIVE ng/mL (NEG <=2000); PHENCYCLIDINE SCREEN,URINE NEGATIVE ng/mL (NEG <=25)
--- NOTE | 2020-03-17 14:01 | NUR ---
Patient given cardiac diet for lunch, patient ate 100% of meal tray, tolerated well
--- NOTE | 2020-03-17 15:55 | NUR ---
Detailed report given to ZAHRA Olivares for room 106. Background given, meds in ED, questions answered
--- NOTE | 2020-03-17 16:26 | NUR ---
Patient not going to M/S room at this time. Possibly after change of shift
--- NOTE | 2020-03-17 16:30 | NUR ---
Patient discharged with v/s stable. Written and verbal after care instructions given and explained. Patient alert, oriented and verbalized understanding of instructions. Ambulatory with steady gait. All questions addressed prior to discharge. ID band removed. Patient advised to follow up with PMD. Rx of MACROBID AND ZOFRAN given. Patient educated on indication of medication including possible reaction and side effects. Opportunity to ask questions provided and answered.
--- NOTE | 2020-03-17 16:58 | NUR ---
Called ZAHRA Olivares that CN on M/S is accepting patient now. Patient transfered to med/surg room 106A via [facility] with CHONG Bhat to transfer, IV patent.
--- NOTE | 2020-03-17 17:00 | NUR ---
RECEIVED REPORT FROM EMERGENCY ROOM NURSE FOR CONTINUITY OF CARE. PATIENT IN STABLE CONDITION. RESPIRATIONS EVEN AND UNLABORED, ROOM AIR. IV INTACT AND PATENT. SAFETY MEASURES IN PLACE. BED IN LOW POSITION. CALL LIGHT WITHIN REACH. BED ALARM ON. WILL CONTINUE TO MONITOR.
--- NOTE | 2020-03-17 17:45 | NUR ---
MRSA NARES TAKEN TO LAB.
--- NOTE | 2020-03-17 19:32 | NUR ---
RECEIVED BEDSIDE SHIFT REPORT FROM DAY SHIFT NURSE. PT IN BED RESTING. PT AAOX4, AMBULATORY, AND ABLE TO MAKE NEEDS KNOWN. RESPIRATIONS EVEN ND UNLABORED TO ROOM AIR. ABDOMEN IS SOFT AND NON-TENDER. SKIN IS WARM, DRY, AND INTACT. PT WITH IV ACCESS ON LEFT WRIST G20, IVF INFUSING WELL. PT DENIES ANY PAIN OR DISCOMFORT. NO REQUESTS MADE. PT BEING MONITORED FOR BLEEDING. SAFETY MEASURES IN PLACE. CALL LIGHT WITHIN REACH. WILL CONTINUE TO MONITOR.
[2020-03-17] MEDS: METOPROLOL 25 MG TAB PO SCH (20:25)
[2020-03-17] MEDS: lisinopriL 20 MG TAB PO SCH (20:25)
[2020-03-17] MEDS: LORazepam 0.5 MG TAB PO SCH (20:25)
[2020-03-17] MEDS: DIVALPROEX 250 MG TABEC PO SCH (20:26)
[2020-03-17] MEDS: APIXABAN 2.5 MG TAB PO SCH (20:30)
--- NOTE | 2020-03-17 20:30 | NUR ---
VITAL SIGNS STABLE. SCHEDULED MEDS GIVEN ORDERED. PT DENIES ANY PAIN OR DISCOMFORT AT THIS TIME. NO REQUESTS MADE. SAFETY MEASURES IN PLACE. CALL LIGHT WITHIN REACH. WILL CONTINUE TO MONITOR.
--- NOTE | 2020-03-17 21:37 | NUR ---
REPORT GIVEN TO CHARGE NURSE FOR CONTINUITY OF CARE
--- NOTE | 2020-03-17 21:40 | NUR ---
RECEIVED REPORT FROM GARRET SWEENEY.PT IS TAKING REST.CONDITION IS STABLE.CALL LIGHT IN REACH.NO C/O PAIN NOW.IVF INFUSING WELL.WILL CONTINUE MONITORING.
[2020-03-18] VITALS: BP 127/58
--- NOTE | 2020-03-18 | NUR ---
sleeping w/o s/s of any distress.ivf is in progress.call light within reach.will cont.monitoring.
[2020-03-18 06:01] LABS: BASOPHILS % (AUTO) 0.9 % (0.0-2.0); EOSINOPHILS # (AUTO) 0.1 K/uL (0-0.4); EOSINOPHILS % (AUTO) 1.9 % (0.0-4.0); HEMATOCRIT 30.7 % (36-48); HEMOGLOBIN 10.4 g/dL (12.0-16.0); LYMPHOCYTES # (AUTO) 1.3 K/uL (2.5-16.5); LYMPHOCYTES % (AUTO) 35.4 % (20.5-51.1); MEAN CORPUSCULAR HEMOGLOBIN 33 pg (27-31); MEAN CORPUSCULAR HGB CONC 34 g/dL (33-37); MEAN CORPUSCULAR VOLUME 98.6 fL (80-94); MONOCYTES # (AUTO) 0.3 K/uL (0.8-1.0); MONOCYTES % (AUTO) 8.9 % (1.7-9.3); NEUTROPHILS % (AUTO) 52.9 % (42.2-75.2); PLATELET COUNT (AUTO) 153 K/uL (140-450); RED BLOOD CELL COUNT(AUTO) 3.12 MIL/uL (4.20-5.40); RED CELL DISTRIBUTION WIDTH 13.3 % (11.6-13.7); WHITE BLOOD COUNT (AUTO) 3.8 K/uL (4.8-10.8)
[2020-03-18 06:30] LABS: ANION GAP 14.5 (8-16); CARBON DIOXIDE 20.9 mmol/L (21-32); CREATININE 1.7 mg/dL (0.6-1.3); POTASSIUM 4.4 mmol/L (3.5-5.1)
[2020-03-18 06:39] LABS: CHOL/HDL RATIO 2.9 (1-4.5); MAGNESIUM 1.9 mg/dL (1.8-2.4); PHOSPHORUS 3.1 mg/dL (2.5-4.9)
--- NOTE | 2020-03-18 07:38 | NUR ---
SLEPT WELL.NO C/O PAIN.NO HEAVY BLEEDING.ENDORSED TO AM RN IN STABLE CONDITION.
--- NOTE | 2020-03-18 07:40 | NUR ---
RECEIVED PT FROM NIGHT DIONICIO BURGESS, PT IS AWAKE AND LYING ON THE BED WITH SIDE RAILS UP AND CALL LIGHT WITHIN REACH, PT IS ON RA, AOX4, DENIES PAIN, WITH IV LINE ON THE LEFT WRIST G. 22 WITH NS INFUSING AT 60ML/HR, INTACT, PATENT, NO SIGN OF DISTRESS NOTED, WILL CONTINUE TO MONITOR PT.
[2020-03-18 08:00] VITALS: BP 118/66
[2020-03-18 08:09] LABS: T4 (THYROXINE) 9.7 ug/dL (4.5-12.0)
--- NOTE | 2020-03-18 08:40 | NUR ---
DISCHARGE PLANNING: THIS IS A 70 Y/O FEMALE PATIENT FROM HOME, WHO CAME IN DUE TO VAGINAL BLEEDING. PAST MEDICAL HISTORY INCLUDE HTN, HLD, OVERACTIVE BLADDER, A FIB, HEMORRHOIDS, STROKE, NEPHROLITHIASIS, BILATERAL TOTAL KNEE REPLACEMENT. INITIAL DIAGNOSIS OF TEMITOPE, CURRENT LABS INCLUDE WBC 3.8, H/H 10.4/30.7, NA/K 140/4.4, BUN/CREA 32/1.7. OB GYNE CONSULT IN PLACE, NOT SEEN YET. TRANSVAGINAL US SHOWED MULTIPLE UTERINE WALL LESIONS, THICKENED ENDOMETRIUM. DC PLAN BACK TO HOME ONCE STABLE.
[2020-03-18] MEDS: METOPROLOL 25 MG TAB PO SCH ×2 (09:00→21:10)
[2020-03-18] MEDS: hydrALAZINE 10 MG TAB PO SCH ×3 (09:00→17:20)
[2020-03-18] MEDS: AMIODARONE 200 MG TAB PO SCH (09:00)
[2020-03-18] MEDS: ASCORBIC ACID 500 MG/5 ML ORASYR GT SCH (09:16)
[2020-03-18] MEDS: ATORVASTATIN 20 MG TAB PO SCH (09:17)
[2020-03-18] MEDS: FERROUS SULFATE 325 MG TABEC PO SCH (09:17)
[2020-03-18] MEDS: OXYBUTYNIN 5 MG TAB PO SCH (09:18)
[2020-03-18] MEDS: DIVALPROEX 250 MG TABEC PO SCH ×2 (09:18→20:41)
[2020-03-18] MEDS: lisinopriL 20 MG TAB PO SCH ×2 (09:19→21:00)
--- NOTE | 2020-03-18 09:19 | NUR ---
SCHEDULED MORNING MEDICATIONS WERE GIVEN TO PT, PARAMETERS WERE CHECKED (PULSE 58 MANUALLY CHECKED, BP 124/65) O2 SAT 99%, RR 18, PT TOLERATED ALL ORAL MEDICATIONS WELL, MEDICATION TEACHINGS WERE GIVE AND PT VERBALIZED UNDERSTANDING, WILL CONTINUE TO MONITOR PT.
[2020-03-18] MEDS: amLODIPine 5 MG TAB PO SCH (09:20)
[2020-03-18] MEDS: NACL 0.9% 1,000 ML IV SCH ×2 (09:22→21:25)
[2020-03-18] MEDS: APIXABAN 2.5 MG TAB PO SCH ×2 (09:25→20:33)
--- NOTE | 2020-03-18 09:25 | NUR ---
PT WAS GIVEN THE ELIQUIS, PLATELET IS 153, TOLERATED, MEDICATION TEACHING WAS GIVEN TO PT AND VERBALIZED UNDERSTANDING, AND WILL MONITOR PT.
--- NOTE | 2020-03-18 10:23 | NUR ---
PATIENT HAS BEEN SCREENED AND CATEGORIZED LOW NUTRITION RISK. PATIENT WILL BE SEEN WITHIN 7 DAYS OF ADMISSION. 03/23/[address]
--- NOTE | 2020-03-18 11:00 | NUR ---
PT'S SANITARY PAD HAS SCANT BLOOD ON IT.
--- NOTE | 2020-03-18 11:13 | NUR ---
SOCIAL WORK NOTE: Patient's Orientation Unable To Assess Information Provided By DARSHAN RAMIREZ - Comments SW WAS UNABLE TO MEET PATIENT AT BEDSIDE DUE TO MEDICAL CONDITION. SW COMPLETED ASSESSMENT WITH PATIENT'S . SW USED PROCUREMENT SERVICES MANAGER DELFINA [id number]. Development And Planning Engineer, Realtionship and Phone Number DARSHAN RAMIREZ [phone] Healthcare Power of Research Engineer Marine [employer] No Does Patient Have a POLST No Identifying Problems No Social Work Triggers Is A Social Work Consult Needed No Mandate Report Filed No Explanation Of Identifying Problems PATIENT IS A 70-YEAR-OLD FEMALE ADMITTED FOR TEMITOPE. PATIENT HAS PMHX OF HEMORRHOIDS AND A-FIB. REPORTED NO SUBSTANCE ABUSE OR MENTAL HEALTH HISTORY. Admitted From Home Pre-Admission Level Of Functioning Status Independent/Ambulatory Prior Resources/Services Used In Last 12 Months No Prior Resources Used Prior DME No Prior DME Used Dialysis Comments N/A Living Situation Lives W/Significant Other House Patient Had Caregiver No Home Support No Caregiver Issues Financial Issues No Known Financial Issue Referral To The Financial Counselor Needed No Factors/Needs No D/C Needs Identified Explanation And Or Other Factors Affecting/Possible DC Needs PATIENT'S WILL COORDINATE TRANSPORTATION AT DISCHARGE. Pt/Rep Participated In Discharge Plan Yes Patient/Family Agress With Discharge Plan Yes Discharge Plan Comments TENTATIVE DISCHARGE PLAN IS FOR PATIENT TO RETURN HOME.
--- NOTE | 2020-03-18 13:10 | NUR ---
PT SCHEDULED BP MED WAS NOT GIVEN, BP 128/64, PULSE 54, WILL CONTINUE TO MONITOR PT.
--- NOTE | 2020-03-18 14:30 | NUR ---
PT 'S SANITARY PAD HAS A SCANT AMOUNT OF BLOOD NOTED.
[2020-03-18 16:00] VITALS: BP 150/57
--- NOTE | 2020-03-18 17:20 | NUR ---
PT WAS GIVEN THE SCHEDULED BP MEDICATION NOW, BP IS 150/57, PULSE IS 60, O2 SATURATION IS 98%, WILL MONITOR PT.
--- NOTE | 2020-03-18 19:47 | NUR ---
ENDORSED PT TO RECREATION ATTENDANT SUPERVISOR NURSE FOR CONTINUITY OF CARE.
--- NOTE | 2020-03-18 19:50 | NUR ---
RECEIVED REPORT FROM STARLA SWEENEY DAYSHIFT NURSE AT BEDSIDE FOR CONTINUITY OF CARE, PT IN STABLE CONDITION.
[2020-03-18] MEDS: LORazepam 0.5 MG TAB PO SCH (20:40)
--- NOTE | 2020-03-18 21:00 | NUR ---
PT LYING IN BED DENIES ANY PAIN AT THIS TIME. IV SITE ON R HAND INTACT AND FLUSHED PATENT. PT HAS NORMAL SALINE RUNNING AT 60MLS/HR. V/S FOLLOWS: T 97.1 P 60 R 18 B/P 125/83 02 98% ON ROOM AIR. PT GIVEN SCHEDULED MEDS OF ATIVAN, ELIQUIS AND LOPRESSOR. PT ONLY WANTED TO TAKE 1 TABLET OF HER DEPAKOTE SAYING THAT SHE TAKES 2 IN THE AM AND 2 IN THE VICKI AT HOME, PT TOOK 1 TAB AT 250MG. 2 TABS WERE RETURNED TO [facility]. ALSO ZESTRIL WAS HELD DUE TO PT B/P 125/83 ( IN NORMAL RANGE) EDUCATION REGARDING MEDICATION, PURPOSES AND SIDE EFFECTS PROVIDED AT BEDSIDE, PT VERBALIZED UNDERSTANDING. PT HAS SCANT VAGINAL BLEEDING NOTED. ALL REQUESTED NEEDS ATTENDED BY STAFF, AND ALL UNIVERSAL FALLS PREVENTION IN PLACE.
[2020-03-19] VITALS: BP 109/52
--- NOTE | 2020-03-19 | NUR ---
PT IN BED ASLEEP, NO S/S OF PAIN OR DISTRESS NOTED. V/S FOLLOWS: T 97.0 P 60 R 20 B/P 109/52 02 98%, IV SITE INTACT AND RUNNING N/S AT 60, ALL FALLS PREVENTION IN PLACE.
--- NOTE | 2020-03-19 01:30 | NUR ---
PT ASLEEP, NEW BAG OF NORMAL SALINE HUNG AND CONTINUES TO RUN NORMAL SALINE AT 60MLS/HR. A FALLS PREVENTION IN PLACE.
--- NOTE | 2020-03-19 03:00 | NUR ---
PT IN BED ASLEEP NO S/S OF PAIN OR DISTRESS NOTED ALL UNIVERSAL FALLS PROTOCOL IN PLACE.
--- NOTE | 2020-03-19 06:09 | NUR ---
PT AWAKE REQUESTED NEEDS ATTENDED. LAMBERTY CONSULT DONE. PT DENIES ANY PAIN OR DISTRESS. ALL FALLS PROTOCOL IN PLACE.
--- NOTE | 2020-03-19 07:25 | NUR ---
RECEIVED PT FROM CHALK EXTRUDING MACHINE OPERATOR NURSE, PT IS AWAKE AND ALERT, IV NOTED TO R HAND 22G, NO SIGNS IF DISTRESS NOTED, ON ROOM AIR, SAFETY AND FALL PRECAUTIONS IN PLACE, WILL CONTINUE TO MONITOR
[2020-03-19 07:27] LABS: BASOPHILS % (AUTO) 0.6 % (0.0-2.0); EOSINOPHILS # (AUTO) 0.1 K/uL (0-0.4); HEMATOCRIT 28.8 % (36-48); LYMPHOCYTES # (AUTO) 1.8 K/uL (2.5-16.5); LYMPHOCYTES % (AUTO) 41.2 % (20.5-51.1); MEAN CORPUSCULAR HEMOGLOBIN 34 pg (27-31); MEAN CORPUSCULAR HGB CONC 35 g/dL (33-37); MEAN CORPUSCULAR VOLUME 98.2 fL (80-94); MONOCYTES # (AUTO) 0.4 K/uL (0.8-1.0); MONOCYTES % (AUTO) 9.1 % (1.7-9.3); NEUTROPHILS # (AUTO) 2.1 K/uL (1.8-7.7); NEUTROPHILS % (AUTO) 47.1 % (42.2-75.2); PLATELET COUNT (AUTO) 151 K/uL (140-450); RED BLOOD CELL COUNT(AUTO) 2.93 MIL/uL (4.20-5.40); RED CELL DISTRIBUTION WIDTH 13.3 % (11.6-13.7); WHITE BLOOD COUNT (AUTO) 4.4 K/uL (4.8-10.8)
[2020-03-19 07:48] LABS: ANION GAP 15.4 (8-16); CREATININE 1.4 mg/dL (0.6-1.3); POTASSIUM 4.4 mmol/L (3.5-5.1)
[2020-03-19 08:00] VITALS: BP 115/68
[2020-03-19 08:01] LABS: MAGNESIUM 1.8 mg/dL (1.8-2.4); PHOSPHORUS 2.8 mg/dL (2.5-4.9)
[2020-03-19] MEDS: AMIODARONE 200 MG TAB PO SCH (09:00)
[2020-03-19] MEDS: hydrALAZINE 10 MG TAB PO SCH ×2 (09:00→13:00)
[2020-03-19] MEDS: FERROUS SULFATE 325 MG TABEC PO SCH (09:29)
[2020-03-19] MEDS: METOPROLOL 25 MG TAB PO SCH (09:31)
[2020-03-19] MEDS: amLODIPine 5 MG TAB PO SCH (09:32)
[2020-03-19] MEDS: OXYBUTYNIN 5 MG TAB PO SCH (09:33)
[2020-03-19] MEDS: DIVALPROEX 250 MG TABEC PO SCH (09:33)
[2020-03-19] MEDS: ATORVASTATIN 20 MG TAB PO SCH (09:33)
[2020-03-19] MEDS: ASCORBIC ACID 500 MG/5 ML ORASYR GT SCH (09:35)
[2020-03-19] MEDS: lisinopriL 20 MG TAB PO SCH (09:35)
--- NOTE | 2020-03-19 09:35 | NUR ---
PT WAS GIVEN THE SCHEDULED AM MEDICATIONS, TOLERATED, PARAMETERS CHECKED, WILL MONITOR PT.
[2020-03-19] MEDS: APIXABAN 2.5 MG TAB PO SCH (09:39)
--- NOTE | 2020-03-19 11:40 | NUR ---
PT WAS SEEN AMBULATING FROM THE BATHROOM TO BED, SANI=TARY PAD WAS SEEN AND SCANT OF BLOOD WAS NOTYED.
--- NOTE | 2020-03-19 13:00 | NUR ---
SCHEDULED BP MEDICATION WAS NOT GIVEN D/T BP IS 113/68, PULSE IS 78.
[2020-03-19] MEDS: NACL 0.9% 1,000 ML IV SCH (14:05)
--- NOTE | 2020-03-19 14:12 | NUR ---
DISCHARGED PT TO HOME ACCOMPANIED BY SON AND DAUGHTER, DISCHARGED TEACHINGS AND INSTRUCTIONS GIVEN TO PT AND PT VERBALIZED UNDERSTANDING, OB-VICE PRESIDENT FOR PHILANTHROPY CONTACT NO WAS GIVEN TO PT WELL, IV LINE AND ARM BAND REMOVED, PT IS STABLE AT THIS TIME.
--- NOTE | 2020-03-19 21:38 | NUR ---
LATE ENTRY- NORMAL SALINE 0.9% DISCONTINUED AT 1700
== END 2020-03-19 14:15 | disposition home or self-care (01) | DRG 760 ==
LOC: MED 09:11 → MTU 12:01
DX: D25.9 Leiomyoma of uterus, unspecified (principal); N17.0 Acute kidney failure with tubular necrosis; E44.1 Mild protein-calorie malnutrition; J98.11 Atelectasis; N93.9 Abnormal uterine and vaginal bleeding, unspecified; Z20.828 Contact with and (suspected) exposure to other viral communicable diseases; I48.91 Unspecified atrial fibrillation; I10 Essential (primary) hypertension; E78.5 Hyperlipidemia, unspecified; Z96.653 Presence of artificial knee joint, bilateral; D72.819 Decreased white blood cell count, unspecified; N32.81 Overactive bladder; D53.9 Nutritional anemia, unspecified; D50.0 Iron deficiency anemia secondary to blood loss (chronic); N85.00 Endometrial hyperplasia, unspecified; R25.1 Tremor, unspecified; Z68.28 Body mass index [BMI] 28.0-28.9, adult; Z79.899 Other long term (current) drug therapy; Z86.73 Personal history of transient ischemic attack (TIA), and cerebral infarction without residual deficits; Z87.442 Personal history of urinary calculi; Z82.49 Family history of ischemic heart disease and other diseases of the circulatory system
CPT/HCPCS: 36415; 71045; 76830; 80048; 80053; 80305; 81001; 82150; 82607; 82746; 83036; 83690; 83735; 83880; 84100; 84134; 84436; 84443; 84484; 85025; 85045; 85610; 86886; 86900; 86901; 87081; 96360; 99285; J7030; Q0092

== ENCOUNTER 2021-10-10 12:12 | Emergency (ER) | payer OTHER, MEDICAID ==
[~2021-10-10] VITALS: Ht 165.1 cm; Wt 83.5 kg
[~2021-10-10 12:12] MED LIST changes: +AMIO100T PO; +AMLO10TA PO; +APR10 PO; -ATI.5 PO; -LISI-420 PO; +LISI-487 PO; -OXYB5TAB43 PO
[2021-10-10 12:13] VITALS: BP 139/83
--- NOTE | 2021-10-10 12:43 | NUR ---
PT AMB TO ER BED 4
--- NOTE | 2021-10-10 12:43 | NUR ---
PT AMB TO BED 4.
--- NOTE | 2021-10-10 12:44 | NUR ---
BIB SON C/O 01/23 LEFT FOREHEAD PAIN, SWELLING S/P LOSS OF BALANCE & FALL 1 HOUR AGO. DENIES LOC.PMH: HTN, HLD, OVERACTIVE BLADDER. DENIES N/V/D. AAOX4 WITH EVEN AND UNSTEADY GAIT; LUNGS CLEAR BL; HR EVEN AND REGULAR; PT DENIES ANY FEVER, CP, SOB, OR COUGH AT THIS TIME; PATIENT POSITIONED FOR COMFORT; HOB ELEVATED; BEDRAILS UP X1; BED DOWN. ER MD MADE AWARE OF PT STATUS.
[2021-10-10] MEDS ORDERED: KETOROLAC 60 MG/2 ML VIAL IM ONE ×2 (13:10→13:16)
--- NOTE | 2021-10-10 13:25 | NUR ---
2ND CALL TO CT-PT IS READY.
--- NOTE | 2021-10-10 13:37 | NUR ---
PT SENT TO CT VIA W/C WITH TECH
--- NOTE | 2021-10-10 13:58 | NUR ---
PT TAKEN TO ER BED 4 VIA W/C FROM CT.
[2021-10-10 15:10] VITALS: BP 127/75
== END 2021-10-10 15:17 | disposition home or self-care (01) ==
LOC: MED 12:12
DX: S00.12XA Contusion of left eyelid and periocular area, initial encounter (principal); S09.90XA Unspecified injury of head, initial encounter; I10 Essential (primary) hypertension; Z86.73 Personal history of transient ischemic attack (TIA), and cerebral infarction without residual deficits; Z87.448 Personal history of other diseases of urinary system; Z98.890 Other specified postprocedural states; Z79.899 Other long term (current) drug therapy; Z79.01 Long term (current) use of anticoagulants; W01.198A Fall on same level from slipping, tripping and stumbling with subsequent striking against other object, initial encounter; Y92.89 Other specified places as the place of occurrence of the external cause; Y93.89 Activity, other specified; Y99.8 Other external cause status
CPT/HCPCS: 70450; 70486; 96372; 99284; J1885

== ENCOUNTER 2022-02-24 10:44 | Emergency (ER) | payer OTHER, MEDICAID ==
[~2022-02-24] VITALS: Ht 160 cm; Wt 78.0 kg
[2022-02-24 10:53] VITALS: BP 197/88
--- NOTE | 2022-02-24 10:56 | NUR ---
pt ambulated to bed 11
--- NOTE | 2022-02-24 11:07 | NUR ---
HUMAN ANATOMY TEACHER AT BEDSIDE
[2022-02-24] MEDS ORDERED: PROM118S5 PO (12:34)
[2022-02-24] MEDS ORDERED: LORA10TA19 PO (12:34)
--- NOTE | 2022-02-24 12:35 | NUR ---
72/F PRESENTS TO ED WITH C/O PRODUCTIVE COUGH AND CONGESTION. PATIENT REPORTS TAKING TYLENOL FOR HER COUGH WITH MILD RELIEF, DENIES FEVERS, CHILLS, N/V/D OR RECENT SICK CONTACTS.
[2022-02-24 12:47] VITALS: BP 197/88
--- NOTE | 2022-02-24 12:47 | NUR ---
Patient discharged with v/s stable. Written and verbal after care instructions ABOUT UPPER RESPIRATORY INFECTION given and explained. Patient alert, oriented and verbalized understanding of instructions. Ambulatory with steady gait. All questions addressed prior to discharge. ID band removed. Patient advised to follow up with PMD. Rx of CLARITIN AND PROMETHAZINE-DM SYRUP given. Patient educated on indication of medication including possible reaction and side effects. Opportunity to ask questions provided and answered.
== END 2022-02-24 12:47 | disposition home or self-care (01) ==
LOC: MED 10:44
DX: J20.8 Acute bronchitis due to other specified organisms (principal); R05.9 Cough, unspecified; R09.89 Other specified symptoms and signs involving the circulatory and respiratory systems; I10 Essential (primary) hypertension; Z87.442 Personal history of urinary calculi; Z79.899 Other long term (current) drug therapy; Z98.890 Other specified postprocedural states
CPT/HCPCS: 71045; 99283; Q0092

== ENCOUNTER 2022-04-27 13:45 | Emergency (ER) | payer OTHER, MEDICAID ==
[~2022-04-27] VITALS: Ht 165.1 cm; Wt 80.8 kg
[~2022-04-27 13:45] MED LIST changes: +LORA10TA19 PO; +PROM118S5 PO
[2022-04-27 14:00] VITALS: BP_SYST 192; BP_SYST 212; BP_DIAS 110; BP_DIAS 87
--- NOTE | 2022-04-27 14:32 | NUR ---
C/O LEFT EYE PAIN,REDNESS, SWELLING AND URINARY BURNING X 2 DAYS.
[2022-04-27] MEDS ORDERED: FLUORESCEIN OPTH STRIP 1 MG OP ONE (15:00)
[2022-04-27] MEDS ORDERED: TETRACAINE HCL/PF 0.5% OPTH 4 ML BTL OP ONE (15:00)
--- NOTE | 2022-04-27 15:35 | NUR ---
72YO FEMALE PT C/O ACHING 8/10 L EYE PAIN X2DAYS. EYE PRESENTS RED AND WATERY. NO FOREIGN OBJECT OR DISCHARGE NOTED. PERRLA .ALSO C/O DYSURIA +BLOOD AND CHILLS. DENIES RELIEF AFTER MOTRIN. DENIES CHEST PAIN, N/V/D, FEVER OR CHILLS . PT AAOX4, NO VISIBLE DISTRESS. RESPIRATIONS EVEN AND UNLABORED. HX:HTN, RENAL DISEASE NKA
[2022-04-27 17:00] VITALS: BP 210/93
[2022-04-27 17:10] LABS: APPEARANCE,URINE CLOUDY (CLEAR); BILIRUBIN,URINE NEGATIVE (NEGATIVE); BLOOD, URINE NEGATIVE (NEGATIVE); COLOR,URINE YELLOW (YELLOW); LEUKOCYTE ESTERASE ,URINE 3+ (NEGATIVE); NITRITE, URINE POSITIVE (NEGATIVE); UGLUCOSE NEGATIVE (NEGATIVE)
[2022-04-27] MEDS ORDERED: hydrALAZINE 25 MG TAB PO STA ×2 (17:10→17:29)
--- NOTE | 2022-04-27 17:12 | NUR ---
MADE AWARE OF PT BP
[2022-04-27] MEDS ORDERED: hydrALAZINE 10 MG TAB ONE ×3 (17:16→17:20)
[2022-04-27 17:27] LABS: RBC,URINE NONE SEEN /HPF (0-5)
[2022-04-27] MEDS ORDERED: hydrALAZINE 20 MG/ML VIAL IM ONE (17:30)
[2022-04-27] MEDS ORDERED: hydrALAZINE 25 MG TAB PO SCH (17:35)
[2022-04-27] MEDS ORDERED: CEPH-588 PO (17:38)
[2022-04-27] MEDS ORDERED: OFLOS LEFT EYE (17:38)
--- NOTE | 2022-04-27 17:51 | NUR ---
Patient discharged with v/s stable. Written and verbal after care instructions FOR BACTERIAL CONJUCTIVITIS AND UTI given and explained. Patient alert, oriented and verbalized understanding of instructions. Ambulatory with steady gait. All questions addressed prior to discharge. ID band removed. Patient advised to follow up with PMD. Rx of KELFEX AND OLFOXACIN given. Opportunity to ask questions provided and answered. Addendum: 04/27/22 at 1753 by PHSEP MADE AWARE OF PT BP
--- NOTE | 2022-04-27 17:55 | NUR ---
The patient's care was reviewed and supervised by [facility], RN.
--- NOTE | 2022-04-30 18:00 | NUR ---
LATE ENTRY. RECEIVED POSITIVE URINE CULTURE. FORM GIVEN TO DR BARRY. TREATMENT APPROPRIATE. FORM PLACED IN BINDER.
== END 2022-04-27 17:58 | disposition home or self-care (01) ==
LOC: MED 13:45
DX: H10.9 Unspecified conjunctivitis (principal); N39.0 Urinary tract infection, site not specified; I10 Essential (primary) hypertension; Z79.899 Other long term (current) drug therapy; Z98.890 Other specified postprocedural states
CPT/HCPCS: 81001; 87086; 99284

== ENCOUNTER 2022-11-18 19:10 | Emergency (ER) | payer OTHER, MEDICAID ==
[~2022-11-18] VITALS: Ht 167.6 cm; Wt 76.2 kg
[~2022-11-18 19:10] MED LIST changes: +CEPH-588 PO; +OFLOS LEFT EYE
[2022-11-18 19:40] VITALS: BP 171/93; PULSE 92; RESP 16; TEMP 97.2; O2SAT 96
--- NOTE | 2022-11-18 19:49 | NUR ---
pt to bed 03 ambulatory
--- NOTE | 2022-11-18 19:55 | NUR ---
URINE SAMPLE TAKEN TO LAB
[2022-11-18 20:00] LABS: APPEARANCE,URINE CLEAR (CLEAR); BILIRUBIN,URINE NEGATIVE (NEGATIVE); BLOOD, URINE NEGATIVE (NEGATIVE); COLOR,URINE YELLOW (YELLOW); LEUKOCYTE ESTERASE ,URINE 2+ (NEGATIVE); NITRITE, URINE NEGATIVE (NEGATIVE); UGLUCOSE NEGATIVE (NEGATIVE)
--- NOTE | 2022-11-18 20:09 | NUR ---
72 YO F BIB SELF C/O URINARY FREQUENCY AND BURNING WHEN URINATING. PT STATES PAIN WHEN URINATING X 2 DAYS. HX UTI WITH LAST UTI 2 YEARS AGO. PAIN 0/10 BUT 2/10 WHEN URINATING. PT STATES SPOTS OF BLOOD ON UNDERWEAR BUT NO BLOOD IN URINE. PT LTYING IN BED WITH NO S/S PAIN OR DISTRESS. CALL LIGHT WITHIN REACH. NKDA HX: CVA
[2022-11-18 20:11] LABS: RBC,URINE 0-5 /HPF (0-5)
[2022-11-18 20:12] VITALS: O2SAT 96
[2022-11-18] MEDS ORDERED: CEPH-588 PO ×2 (20:18→20:54)
--- NOTE | 2022-11-18 20:43 | NUR ---
Niranjan bueno in [facility] - 11/18/22 at 2100 by [facility] PT BACK FROM CT
--- NOTE | 2022-11-18 20:47 | NUR ---
Patient discharged with v/s stable. Written and verbal after care instructions given and explained. Patient verbalized understanding. Ambulatory with steady gait. All questions addressed prior to discharge. Advised to follow up with PMD.
== END 2022-11-18 20:47 | disposition home or self-care (01) ==
LOC: MED 19:10
DX: N39.0 Urinary tract infection, site not specified (principal); I10 Essential (primary) hypertension; Z79.899 Other long term (current) drug therapy
CPT/HCPCS: 81001; 87086; 99283

== ENCOUNTER 2022-11-27 19:52 | Inpatient (IN) | payer OTHER, MEDICAID ==
[~2022-11-27] VITALS: Ht 167.6 cm; Wt 73.9 kg
[2022-11-27 20:05] VITALS: BP 167/65; PULSE 77; RESP 20; TEMP 97.8
[2022-11-27] MEDS ORDERED: NACL 0.9% 1,000 ML IV ONE ×2 (20:10→21:40)
--- NOTE | 2022-11-27 20:18 | NUR ---
PT. TO BED 04 AMBULATORY
[2022-11-27] MEDS ORDERED: ONDANSETRON 4 MG/2 ML VIAL IVP ONE (20:30)
--- NOTE | 2022-11-27 20:30 | NUR ---
pt resting on bed, A/ox4. not in distress. on monitor, ' call light within reach. pt instructed on how to use call light. pt returned demonstration. all needs met at this time. bed locked in lowest position. side rails x2 for safety. no standard id wrist band available. noted by charge nurse. verified pt name and date of when doing bedside and giving medication
[2022-11-27 20:52] LABS: BASOPHILS % (AUTO) 0.5 % (0.0-2.0); EOSINOPHILS # (AUTO) 0.1 K/uL (0-0.4); EOSINOPHILS % (AUTO) 1.3 % (0.0-4.0); HEMATOCRIT 31.9 % (36-48); HEMOGLOBIN 11.2 g/dL (12.0-16.0); LYMPHOCYTES # (AUTO) 1.3 K/uL (2.5-16.5); LYMPHOCYTES % (AUTO) 28.3 % (20.5-51.1); MEAN CORPUSCULAR HEMOGLOBIN 34 pg (27-31); MEAN CORPUSCULAR HGB CONC 35 g/dL (33-37); MEAN CORPUSCULAR VOLUME 95.8 fL (80-94); MONOCYTES # (AUTO) 0.5 K/uL (0.8-1.0); NEUTROPHILS # (AUTO) 2.8 K/uL (1.8-7.7); NEUTROPHILS % (AUTO) 58.9 % (42.2-75.2); PLATELET COUNT (AUTO) 172 K/uL (140-450); RED BLOOD CELL COUNT(AUTO) 3.33 MIL/uL (4.20-5.40); RED CELL DISTRIBUTION WIDTH 14.1 % (11.6-13.7); WHITE BLOOD COUNT (AUTO) 4.7 K/uL (4.8-10.8)
[2022-11-27 21:05] LABS: ALBUMIN 3.5 g/dL (3.4-5.0); ASPARTATE AMINOTRANSFERASE 27 U/L (15-37); CARBON DIOXIDE 28.1 mmol/L (21-32); CREATININE 1.4 mg/dL (0.6-1.3); GLUCOSE 88 mg/dL (74-106); LIPASE 193 U/L (73-393); TOTAL BILIRUBIN 0.5 mg/dL (0.0-1.0); UREA NITROGEN, BLOOD 17 mg/dL (7-18)
[2022-11-27 21:24] LABS: ANION GAP 10.5 (8-16); CHLORIDE 85 mmol/L (98-107); POTASSIUM 4.6 mmol/L (3.5-5.1)
[2022-11-27 21:27] LABS: SODIUM SERUM 119 mmol/L (136-145)
--- NOTE | 2022-11-27 21:38 | NUR ---
URINE TO LAB
[2022-11-27 21:40] LABS: APPEARANCE,URINE CLEAR (CLEAR); BILIRUBIN,URINE NEGATIVE (NEGATIVE); BLOOD, URINE NEGATIVE (NEGATIVE); COLOR,URINE YELLOW (YELLOW); LEUKOCYTE ESTERASE ,URINE TRACE (NEGATIVE); NITRITE, URINE NEGATIVE (NEGATIVE); UGLUCOSE NEGATIVE (NEGATIVE)
--- NOTE | 2022-11-27 21:53 | NUR ---
Niranjan bueno in [facility] - 11/27/22 at 2153 by VANDANA X-RAY AT BEDSIDE
[2022-11-27 21:59] LABS: RBC,URINE 0-5 /HPF (0-5); URINE AMORPHOUS URATE 1+ /HPF (None Seen)
[2022-11-27] MEDS ORDERED: HYDR100T49 PO (22:03)
[2022-11-27] MEDS ORDERED: DIVA250E1 PO (22:03)
[2022-11-27] MEDS: NACL 0.9% 1,000 ML IV SCH (23:00)
--- NOTE | 2022-11-27 23:50 | NUR ---
pt. complained of 8/10 pelvic pain.
--- NOTE | 2022-11-27 23:51 | NUR ---
informed dr. Aguayo of 12/[address] Aguayo provided telephone order morphine 2mg iv once, laboratory of sodium and CMP. read back telephone order. telephone order carried out
[2022-11-27] MEDS ORDERED: MORPHINE SULFATE 2 MG/ML SYR IVP ONE (23:55)
[2022-11-28] MEDS ORDERED: MORPHINE SULFATE 2 MG/ML SYR ONE ×2 (00:05→07:14)
--- NOTE | 2022-11-28 00:06 | NUR ---
morphine 2mg iv given as ordered by dr. Aguayo for pelvic pain
[2022-11-28] MEDS ORDERED: cefTRIAXone 1,000 MG VIAL ONE (00:56)
[2022-11-28 01:09] LABS: ALBUMIN 2.7 g/dL (3.4-5.0); ANION GAP 10.5 (8-16); ASPARTATE AMINOTRANSFERASE 25 U/L (15-37); CARBON DIOXIDE 24.8 mmol/L (21-32); CHLORIDE 92 mmol/L (98-107); CREATININE 1.2 mg/dL (0.6-1.3); GLUCOSE 84 mg/dL (74-106); POTASSIUM 4.3 mmol/L (3.5-5.1); SODIUM SERUM 123 mmol/L (136-145); TOTAL BILIRUBIN 0.5 mg/dL (0.0-1.0); UREA NITROGEN, BLOOD 17 mg/dL (7-18)
--- NOTE | 2022-11-28 03:00 | NUR ---
pt resting on bed, A/ox4. not in distress. on monitor, ' call light within reach. all needs met at this time. bed locked in lowest position. side rails x2 for safety
--- NOTE | 2022-11-28 05:52 | NUR ---
informed dr. Aguayo of 10/23 pelvic pain of pt.
[2022-11-28 06:38] LABS: ANION GAP 11.8 (8-16); CARBON DIOXIDE 22.8 mmol/L (21-32); CHLORIDE 95 mmol/L (98-107); CREATININE 1.2 mg/dL (0.6-1.3); GLUCOSE 82 mg/dL (74-106); POTASSIUM 4.6 mmol/L (3.5-5.1); SODIUM SERUM 125 mmol/L (136-145); UREA NITROGEN, BLOOD 16 mg/dL (7-18)
--- NOTE | 2022-11-28 07:00 | NUR ---
Dr. owusu made a telephone order to give pt morphine 2mg iv once for 12/23 pelvic pain Addendum: 11/28/22 at [email or web address] owusu made a telephone order to give pt morphine 2mg iv once for 10/23 pelvic pain
[2022-11-28] MEDS ORDERED: MORPHINE SULFATE 2 MG/ML SYR IVP ONE (07:10)
--- NOTE | 2022-11-28 07:15 | NUR ---
morphine 2mg iv given as ordered by Dr. Aguayo
--- NOTE | 2022-11-28 07:26 | NUR ---
Pt report given to alex hoyt. alex hoyt verbalized understanding and no further question. Transfer of care at this time.
--- NOTE | 2022-11-28 07:26 | NUR ---
TRANSFER OF CARE GIVEN BY JASMYN SWEENEY.
[2022-11-28 07:33] VITALS: O2SAT 99
--- NOTE | 2022-11-28 07:33 | NUR ---
PT SITTING UPRIGHT, AWAKE, NAD NOTED. STATES SHE IS A LITTLE WEAK BUT BETTER THAN PAST FEW HOURS. PT DENIES PAIN , N, V, D, CHILLS , FEVER, FLU SYMPTOMS, CHANGE IN LIFE STYLE, URINARY SYMPTOMS, MAR. SAFETY MAINTAINED. HX: HTN, HIGH CHOLESTEROL, STROKE NKA
--- NOTE | 2022-11-28 09:20 | NUR ---
Patient will be admitted to care of [facility]. Admited to TELE 126-B. Will go to room 126B. Belongings list completed. Report to JAYESH SWEENEY.
[2022-11-28 09:50] VITALS: PULSE 65; PULSE 79; RESP 18; O2SAT 99
--- NOTE | 2022-11-28 10:16 | NUR ---
The patient's care was reviewed and supervised by YODIT CLIFFORD RN.
[2022-11-28 10:22] LABS: ANION GAP 11.1 (8-16); CARBON DIOXIDE 25.8 mmol/L (21-32); CHLORIDE 96 mmol/L (98-107); CREATININE 1.1 mg/dL (0.6-1.3); GLUCOSE 81 mg/dL (74-106); POTASSIUM 4.9 mmol/L (3.5-5.1); SODIUM SERUM 128 mmol/L (136-145); UREA NITROGEN, BLOOD 15 mg/dL (7-18)
[2022-11-28] MEDS ORDERED: DIVALPROEX 250 MG TABEC PO SCH (11:07)
[2022-11-28] MEDS ORDERED: METOPROLOL 25 MG TAB PO SCH (11:07)
[2022-11-28] MEDS ORDERED: lisinopriL 20 MG TAB PO SCH (11:08)
[2022-11-28] MEDS ORDERED: ATORVASTATIN 20 MG TAB PO SCH (11:08)
[2022-11-28] MEDS: APIXABAN 2.5 MG TAB PO SCH ×2 (11:26→20:41)
[2022-11-28] MEDS: NACL 0.9% 1,000 ML IV SCH (11:29)
--- NOTE | 2022-11-28 11:29 | NUR ---
PATIENT HAS BEEN SCREENED AND CATEGORIZED LOW NUTRITION RISK. PATIENT WILL BE SEEN WITHIN 7 DAYS OF ADMISSION. 11/27/22-12/04/[address]
[2022-11-28 12:41] LABS: ANION GAP 10.7 (8-16); CARBON DIOXIDE 25.4 mmol/L (21-32); CHLORIDE 98 mmol/L (98-107); CREATININE 1.1 mg/dL (0.6-1.3); GLUCOSE 74 mg/dL (74-106); POTASSIUM 5.1 mmol/L (3.5-5.1); SODIUM SERUM 129 mmol/L (136-145); UREA NITROGEN, BLOOD 12 mg/dL (7-18)
[2022-11-28] MEDS ORDERED: NON-FORMULARY ITEM (Hydralazine HCl (Hydralazine Hcl) 1 TAB) PO SCH (13:00)
[2022-11-28 16:00] VITALS: BP 154/81; PULSE 50; RESP 18; TEMP 97.5
[2022-11-28 16:42] LABS: ANION GAP 10.3 (8-16); CARBON DIOXIDE 24.2 mmol/L (21-32); CHLORIDE 97 mmol/L (98-107); GLUCOSE 115 mg/dL (74-106); POTASSIUM 4.5 mmol/L (3.5-5.1); SODIUM SERUM 127 mmol/L (136-145); UREA NITROGEN, BLOOD 12 mg/dL (7-18)
--- NOTE | 2022-11-28 18:46 | NUR ---
PT RESTING IN BED, AAO x4, RESPIRATIONS EVEN AND UL ON RA. DENIES PAIN/DISCOMFORT, DENIES N/V, PT CONSUMED LUNCH AND DINNER. NO SIGNIFICANT CHANGES NOTED THROUGHOUT SHIFT. IV SITE WNL. ALL NEEDS MET. SAFETY MEASURES IN PLACE, CALL LIGHT IN REACH.
--- NOTE | 2022-11-28 19:13 | NUR ---
REPORT GIVEN TO PM NURSE FOR CONTINUITY OF CARE.
--- NOTE | 2022-11-28 19:30 | NUR ---
RECEIVED PT FROM DAY RN FOR CONTINUITY CARE. PT IS STABLE.ABLE TO MAKE NEEDS KNOWN. NO S/SX OF DISTRESS. ALL PRECAUTIONS IN PLACE. CALL LIGHT WITHIN REACH. WILL CONTINUE TO MONITOR.
[2022-11-28 20:00] VITALS: BP 160/82; PULSE 50; PULSE 52; RESP 18; TEMP 97.1; O2SAT 99
[2022-11-28] MEDS: lisinopriL 20 MG TAB PO SCH (20:40)
[2022-11-28] MEDS: METOPROLOL 25 MG TAB PO SCH (20:40)
--- NOTE | 2022-11-28 21:00 | NUR ---
SCHEDULED MEDICATIONS GIVEN. PT TOLERATED WELL. WILL CONTINUE TO MONITOR.
[2022-11-28 21:08] LABS: ANION GAP 9.6 (8-16); CARBON DIOXIDE 25.4 mmol/L (21-32); CHLORIDE 99 mmol/L (98-107); CREATININE 1.1 mg/dL (0.6-1.3); GLUCOSE 106 mg/dL (74-106); SODIUM SERUM 129 mmol/L (136-145); UREA NITROGEN, BLOOD 12 mg/dL (7-18)
[2022-11-29] VITALS (8 sets, daily range): BP systolic 127–199; BP diastolic 67–86; PULSE 51–85; RESP 16–21; TEMP 97.1–98; O2SAT 96–99
[2022-11-29 00:26] LABS: ANION GAP 9.7 (8-16); CARBON DIOXIDE 26.2 mmol/L (21-32); CHLORIDE 99 mmol/L (98-107); CREATININE 1.1 mg/dL (0.6-1.3); GLUCOSE 83 mg/dL (74-106); POTASSIUM 4.9 mmol/L (3.5-5.1); SODIUM SERUM 130 mmol/L (136-145); UREA NITROGEN, BLOOD 13 mg/dL (7-18)
--- NOTE | 2022-11-29 03:02 | NUR ---
PT ASLEEP. NO S/SX OF DISTRESS NOTED. ALL PRECAUTIONS IN PLACE. CALL LIGHT WITHIN REACH. WILL CONTINUE TO MONITOR.
[2022-11-29 05:04] LABS: BASOPHILS % (AUTO) 0.7 % (0.0-2.0); EOSINOPHILS # (AUTO) 0.1 K/uL (0-0.4); EOSINOPHILS % (AUTO) 2.9 % (0.0-4.0); HEMATOCRIT 30.7 % (36-48); HEMOGLOBIN 10.7 g/dL (12.0-16.0); LYMPHOCYTES # (AUTO) 1.2 K/uL (2.5-16.5); LYMPHOCYTES % (AUTO) 32.8 % (20.5-51.1); MEAN CORPUSCULAR HEMOGLOBIN 34 pg (27-31); MEAN CORPUSCULAR HGB CONC 35 g/dL (33-37); MEAN CORPUSCULAR VOLUME 96.5 fL (80-94); MONOCYTES # (AUTO) 0.4 K/uL (0.8-1.0); MONOCYTES % (AUTO) 10.8 % (1.7-9.3); NEUTROPHILS # (AUTO) 1.9 K/uL (1.8-7.7); NEUTROPHILS % (AUTO) 52.8 % (42.2-75.2); PLATELET COUNT (AUTO) 158 K/uL (140-450); RED BLOOD CELL COUNT(AUTO) 3.18 MIL/uL (4.20-5.40); RED CELL DISTRIBUTION WIDTH 14.6 % (11.6-13.7); WHITE BLOOD COUNT (AUTO) 3.7 K/uL (4.8-10.8)
[2022-11-29 05:33] LABS: ANION GAP 11.7 (8-16); CARBON DIOXIDE 24.2 mmol/L (21-32); CHLORIDE 101 mmol/L (98-107); CREATININE 1.1 mg/dL (0.6-1.3); GLUCOSE 74 mg/dL (74-106); POTASSIUM 4.9 mmol/L (3.5-5.1); SODIUM SERUM 132 mmol/L (136-145); UREA NITROGEN, BLOOD 12 mg/dL (7-18)
--- NOTE | 2022-11-29 06:35 | NUR ---
PT IS STABLE. NO ACUTE EVENTS THROUGHOUT THE NIGHT. ALL NEEDS MET.NO S/SX OF DISTRESS. NO COMPLAINS OF PAIN AT THIS MOMENT. ALL PRECAUTIONS IN PLACE. CALL LIGHT WITHIN REACH. WILL ENDORSE TO DAY SHIFT NURSE.
--- NOTE | 2022-11-29 08:21 | NUR ---
RECEIVED REPORT FROM GLASS BELT SANDER NURSE FOR CONTINUITY OF CARE. PATIENT IS AWAKE, A&O X4, MOLDOVAN SPEAKING BUT DOES UNDERSTAND SOME HEBREW. CURRENTLY STABLE ON ROOM AIR. IV FLUSHED FOR PATENCY. POC DISCUSSED, CALL LIGHT WITHIN REACH.
--- NOTE | 2022-11-29 08:30 | NUR ---
VS TAKEN, PATIENT BLOOD PRESSURE OF 186/76. SCHEDULED BLOOD PRESSURE MEDICATIONS ADMINISTERED. PT TOLERATED WELL. WILL REASSESS PATIENTS BLOOD PRESSURE IN ONE HOUR.
[2022-11-29] MEDS: DIVALPROEX 250 MG TABEC PO SCH (08:32)
[2022-11-29] MEDS: ATORVASTATIN 20 MG TAB PO SCH (08:32)
[2022-11-29] MEDS: METOPROLOL 25 MG TAB PO SCH ×2 (08:33→21:46)
[2022-11-29] MEDS: APIXABAN 2.5 MG TAB PO SCH ×2 (08:34→21:46)
[2022-11-29] MEDS: lisinopriL 20 MG TAB PO SCH ×2 (08:35→21:47)
--- NOTE | 2022-11-29 08:45 | NUR ---
FNS CONSULT HAS BEEN RECEIVED FOR VOMITING X 3 DAYS ON 11/29/22. PATIENT HAS BEEN RE-SCREENED HIGH RISK AND WILL BE SEEN WITHIN 1-2 DAYS OF RECEIVING THE FNS CONSULT. CHIKIS RHODES [address]
[2022-11-29] MEDS ORDERED: SULF-59 PO (10:10)
--- NOTE | 2022-11-29 12:00 | NUR ---
PT RESTING COMFORTABLY. ALL VITAL SIGNS WNL, DISPLAY DIRECTOR TO SEE PATIENT BEFORE BEING DISCHARGED.
--- NOTE | 2022-11-29 14:20 | NUR ---
11/29/22 RD INITIAL ASSESSMENT COMPLETED PLEASE REFER TO NUTRITION ASSESSMENT UNDER CARE ACTIVITY FOR ESTIMATED NUTRITIONAL NEEDS. 1. CONTINUE CARDIAC DIET TOLERATED AND ADD RENAL DIET 2. RD TO FOLLOW-UP 7 DAYS, LOW RISK CHIKIS RHODES RD
[2022-11-29] MEDS ORDERED: hydrALAZINE 25 MG TAB PO PRN (15:45)
[2022-11-29] MEDS: hydrALAZINE 20 MG/ML VIAL IVP PRN (17:17)
[2022-11-29] MEDS ORDERED: hydrALAZINE 25 MG TAB PO SCH (18:10)
--- NOTE | 2022-11-29 19:10 | NUR ---
RECEIVED ENDORSEMENT FROM KIERAN HERNANDEZ, AND PATIENT WAS NOT STABLE FOR DISCHARGE WITH BLOOD PRESSURE NOTED AT 199/86 HR 85 OR RIGHT ARM, LEFT ARM 209/83 HR 88. PAGED HORTICULTURAL THERAPIST FOR NEW ORDERS. WILL AWAIT RETURN CALL FOR ORDERS. PATIENT IS WILLING TO STAY TO GET THE BLOOD PRESSURE UNDER CONTROL. PATIENT DENIES ANY PAIN/DISCOMFORT. NO NOTED RESPIRATORY DISTRESS. FAMILY MEMBER AT BEDSIDE BOTH WERE EDUCATED ON THE CONTINUED CARE THAT WILL BE PROVIDED AT THIS TIME. PATIENT WAS CHANGED OUT OF HER CIVILIAN CLOTHING AND BACK TO HOSPITAL GOWN WITH TELEMONITOR. SIDE RAILS UP X 2 CALL LIGHT WITHIN REACH. [email or web address]
--- NOTE | 2022-11-29 20:00 | NUR ---
Patient's Plan of Care was discussed and reviewed with RAFAEL HERNANDEZ:
[2022-11-29] MEDS ORDERED: hydrALAZINE 20 MG/ML VIAL IVP PRN (20:45)
--- NOTE | 2022-11-29 20:45 | NUR ---
ORDERS WERE CARRIED OUT TO GIVE MORE HYDRALAZINE AND STOP THE DISCHARGE FOR NOW. CAOGUICHO RN COVERED THE IVP PRN FOR BLOOD PRESSURE WE WILL REASSESS IN ONE HOURS TIME. [email or web address]
--- NOTE | 2022-11-29 22:25 | NUR ---
PATIENT BLOOD PRESSURE WAS NOTED LOWER THAN 2000 BUT NURSING WILL MONITOR VITAL SIGNS AT MIDNIGHT FOR EFFECTIVENESS OF ROUTINE MEDICATIONS WITH PRN. PATIENT DENIES PAIN/DISCOMFORT AT THIS TIME. ABLE TO COMMUNICATE NEEDS AND WANTS VERBALLY. NO NOTED S/S OF RESPIRATORY DISTRESS. SIDE RAILS UP X 2 CALL LIGHT WITHIN REACH. [email or web address]
[2022-11-30] VITALS: BP 164/60; PULSE 59; RESP 18; TEMP 97.6; O2SAT 96
--- NOTE | 2022-11-30 02:06 | NUR ---
PATIENT WAS CHANGED AND GIVEN BED BATH. PATIENT REMAINS CLEAN AND DRY. ALL NEEDS MET. SIDE RAILS UP X 2 CALL LIGHT WITHIN REACH. [email or web address]
--- NOTE | 2022-11-30 03:07 | NUR ---
PATIENT IN BED ASLEEP. NO NOTED S/S OF PAIN/DISCOMFORT. ALL NEEDS MET AT THIS TIME. NO NOTED DISCOMFORT OR PAIN. NO NOTED RESPIRATORY DISTRESS. SIDE RAILS UP CALL LIGHT WITHIN REACH [email or web address]
[2022-11-30 04:00] VITALS: BP 167/64; PULSE 53; PULSE 61; RESP 18; TEMP 98; O2SAT 96
[2022-11-30] MEDS: hydrALAZINE 20 MG/ML VIAL IVP PRN ×2 (04:26→09:00)
[2022-11-30 05:16] LABS: BASOPHILS % (AUTO) 0.9 % (0.0-2.0); EOSINOPHILS # (AUTO) 0.1 K/uL (0-0.4); EOSINOPHILS % (AUTO) 2.6 % (0.0-4.0); HEMATOCRIT 33.7 % (36-48); HEMOGLOBIN 11.7 g/dL (12.0-16.0); LYMPHOCYTES # (AUTO) 1.1 K/uL (2.5-16.5); MEAN CORPUSCULAR HEMOGLOBIN 34 pg (27-31); MEAN CORPUSCULAR HGB CONC 35 g/dL (33-37); MEAN CORPUSCULAR VOLUME 96.8 fL (80-94); MONOCYTES # (AUTO) 0.4 K/uL (0.8-1.0); MONOCYTES % (AUTO) 11.6 % (1.7-9.3); NEUTROPHILS # (AUTO) 2.2 K/uL (1.8-7.7); NEUTROPHILS % (AUTO) 56.9 % (42.2-75.2); PLATELET COUNT (AUTO) 169 K/uL (140-450); RED BLOOD CELL COUNT(AUTO) 3.48 MIL/uL (4.20-5.40); RED CELL DISTRIBUTION WIDTH 14.4 % (11.6-13.7); WHITE BLOOD COUNT (AUTO) 3.9 K/uL (4.8-10.8)
[2022-11-30 05:33] LABS: CARBON DIOXIDE 26.6 mmol/L (21-32); CHLORIDE 101 mmol/L (98-107); CREATININE 1.1 mg/dL (0.6-1.3); GLUCOSE 86 mg/dL (74-106); POTASSIUM 4.6 mmol/L (3.5-5.1); SODIUM SERUM 134 mmol/L (136-145); UREA NITROGEN, BLOOD 9 mg/dL (7-18)
--- NOTE | 2022-11-30 05:40 | NUR ---
PATIENT REEVALUATION WAS NOTED 172/66 HR 75. NO S/S OF HEADACHE, DIZZINESS, OR NOSE BLEEDING. PATIENT STATED SHE TAKE MEDICATION FOR MENTAL HEALTH. THIS WILL BE ENDORSED TO THE AM SHIFT NURSE TO FOLLOW UP WITH MD. PATIENT WAS CHANGED. PATIENT REMAINS CLEAN AND DRY AT THIS TIME. SIDE RAILS UP X 2 CALL LIGHT WITH REACH. [email or web address]
--- NOTE | 2022-11-30 07:07 | NUR ---
ENDORSED PATIENT CARE TO RENETTA HERNANDEZ, PATIENT WAS STABLE DURING SHIFT REPORT. [email or web address]
[2022-11-30] MEDS: lisinopriL 20 MG TAB PO SCH (08:51)
[2022-11-30] MEDS: DIVALPROEX 250 MG TABEC PO SCH (08:52)
[2022-11-30] MEDS: ATORVASTATIN 20 MG TAB PO SCH (08:52)
[2022-11-30] MEDS: METOPROLOL 25 MG TAB PO SCH (08:52)
[2022-11-30] MEDS: APIXABAN 2.5 MG TAB PO SCH (08:59)
[2022-11-30] MEDS ORDERED: hydrALAZINE 25 MG TAB PO SCH ×2 (09:25→10:45)
[2022-11-30 10:00] VITALS: BP 189/71; PULSE 58
--- NOTE | 2022-11-30 12:13 | NUR ---
DC PLANNING A 72 YO FEMALE PATIENT BROUGHT IN BY HER SON TO ED FOR A 2 DAY HX OF GENERALIZED WEAKNESS ,ASSOCIATED WITH VOMITING,HEMATURIA AND BACK PAIN. PATIENT HAS HX OF CVA ,HYPERLIPIDEMIA AND KIDNEY STONE .CODE STATUS-DNR.NA+ LEVEL ON ADMISSION 129.LATEST IS 134.WAS GIVEN ROCEPHIN FOR UTI.DC ORDER IN .HOME HEALTH TO BE ARRANGED FOR HOME SAFETY EVAL AND MED MGT. Addendum: 11/30/22 at 1405 by LESLEY ANN CM DC PLANNING LIFE [facility] WILL BE THE HOME HEALTH AGENCY.SPOKE WITH [facility].ORDER FOR HOME HEALTH,H AND P,PROGRESS NOTED FAXED TO SAME FACILITY
[2022-11-30] MEDS ORDERED: POLYETHYLENE GLYCOL 17 GM/PKT PO SCH (12:15)
--- NOTE | 2022-11-30 14:29 | NUR ---
Pt. resides with her mortising machine operator at the address listed on the face sheet and stated, "He just got out of the hospital as well". Was Dx. with bipolar and has depression, takes Depakot. Pt. receives SSI and has a IHSS, Melly Boudreaux, 4 hours a day M-F assisting with cooking, cleaning etc. Pt. stated her PCP is Dr. Woodson in [place].
--- NOTE | 2022-11-30 16:30 | NUR ---
DISCHARGE ORDER PLACED BY MD. DISCHARGE INSTRUCTIONS PROVIDED. PT VERBALIZE UNDERSTANDING. PT'S SON AT BEDSIDE. REMOVED IV AND ID BAND. PT LEFT UNIT VIA WHEELCHAIR. PT STABLE UPON DISCHARGE.
[2022-12-01] MEDS ORDERED: ONDA-188 PO (21:00)
== END 2022-11-30 16:25 | disposition home health service (06) | DRG 640 ==
LOC: MED 19:52 → MTU 22:12 → MMU 11-28 03:09
PROVIDERS: ADMIT Family Medicine; ATTEND Family Medicine
DX: E87.1 Hypo-osmolality and hyponatremia (principal); N17.0 Acute kidney failure with tubular necrosis; N39.0 Urinary tract infection, site not specified; E87.8 Other disorders of electrolyte and fluid balance, not elsewhere classified; Z66 Do not resuscitate; D72.819 Decreased white blood cell count, unspecified; E87.6 Hypokalemia; D64.9 Anemia, unspecified; I10 Essential (primary) hypertension; K59.00 Constipation, unspecified; Z20.822 Contact with and (suspected) exposure to COVID-19; Z96.643 Presence of artificial hip joint, bilateral; R11.10 Vomiting, unspecified; E86.1 Hypovolemia; R94.31 Abnormal electrocardiogram [ECG] [EKG]; E78.5 Hyperlipidemia, unspecified; Z86.73 Personal history of transient ischemic attack (TIA), and cerebral infarction without residual deficits; Z87.442 Personal history of urinary calculi; Z79.899 Other long term (current) drug therapy; Z82.49 Family history of ischemic heart disease and other diseases of the circulatory system
CPT/HCPCS: 36415; 71045; 80048; 80053; 81001; 83036; 83690; 83735; 84484; 85025; 87086; 96361; 96374; 97116; 99285; J0360; J0696; J2270; J2405; J7030; J7060; Q0092

== ENCOUNTER 2022-12-11 15:57 | Inpatient (IN) | payer OTHER, MEDICAID ==
[~2022-12-11] VITALS: Ht 170.2 cm; Wt 71.7 kg
[~2022-12-11 15:57] MED LIST changes: -AMIO100T PO; -AMLO10TA PO; -APR10 PO; -CEPH-588 PO; +HYDR100T49 PO; -OFLOS LEFT EYE; +ONDA-188 PO; -PROM118S5 PO; +SULF-59 PO
[2022-12-11 16:07] VITALS: BP 170/66; PULSE 78; RESP 18; TEMP 98; O2SAT 99
[2022-12-11] MEDS ORDERED: NACL 0.9% 1,000 ML IV ONE (16:35)
--- NOTE | 2022-12-11 17:05 | NUR ---
72YO F BIB SON PRESENTS W/NAUSEA, VOMITING, LOSS OF APPETITE X 3DAYS. PT STATES SHE WAS SEEN HERE A COUPLE WKS AGO AND ADMITTED FOR LOW SODIUM. PT DENIES DIARRHEA, FEVER, CHILLS, ABD PAINK COUGH , SOB, CP, FLU SYMPTOMS, URINARY SYMPTOMS. LAST BOWEL LAST NIGHT, AOX4, STEADY GAIT. SON AT BEDSIDE, PT ON PATIENT SERVICES TECHNICIAN. NAD NOTED, SAFETY MAINTAINED, CALL LIGHT WITHIN REACH. HX: HTN, STROKE 6YRS AGO, CHRONIC KIDNEY DISEASE
[2022-12-11 17:28] LABS: BASOPHILS % (AUTO) 0.3 % (0.0-2.0); EOSINOPHILS % (AUTO) 0.1 % (0.0-4.0); HEMATOCRIT 32.2 % (36-48); HEMOGLOBIN 11.1 g/dL (12.0-16.0); LYMPHOCYTES # (AUTO) 1.3 K/uL (2.5-16.5); LYMPHOCYTES % (AUTO) 20.6 % (20.5-51.1); MEAN CORPUSCULAR HEMOGLOBIN 33 pg (27-31); MEAN CORPUSCULAR HGB CONC 34 g/dL (33-37); MEAN CORPUSCULAR VOLUME 96.7 fL (80-94); MONOCYTES # (AUTO) 0.4 K/uL (0.8-1.0); MONOCYTES % (AUTO) 6.5 % (1.7-9.3); NEUTROPHILS # (AUTO) 4.6 K/uL (1.8-7.7); NEUTROPHILS % (AUTO) 72.5 % (42.2-75.2); PLATELET COUNT (AUTO) 220 K/uL (140-450); RED BLOOD CELL COUNT(AUTO) 3.33 MIL/uL (4.20-5.40); RED CELL DISTRIBUTION WIDTH 14.1 % (11.6-13.7); WHITE BLOOD COUNT (AUTO) 6.4 K/uL (4.8-10.8)
[2022-12-11 17:33] LABS: APPEARANCE,URINE CLEAR (CLEAR); BILIRUBIN,URINE NEGATIVE (NEGATIVE); BLOOD, URINE NEGATIVE (NEGATIVE); COLOR,URINE YELLOW (YELLOW); LEUKOCYTE ESTERASE ,URINE NEGATIVE (NEGATIVE); NITRITE, URINE NEGATIVE (NEGATIVE); UGLUCOSE NEGATIVE (NEGATIVE)
[2022-12-11 17:34] LABS: ALBUMIN 3.4 g/dL (3.4-5.0); ANION GAP 10.6 (8-16); ASPARTATE AMINOTRANSFERASE 22 U/L (15-37); CARBON DIOXIDE 27.6 mmol/L (21-32); CHLORIDE 93 mmol/L (98-107); CREATININE 2.1 mg/dL (0.6-1.3); GLUCOSE 89 mg/dL (74-106); LIPASE 129 U/L (73-393); POTASSIUM 5.2 mmol/L (3.5-5.1); SODIUM SERUM 126 mmol/L (136-145); TOTAL BILIRUBIN 0.4 mg/dL (0.0-1.0); UREA NITROGEN, BLOOD 24 mg/dL (7-18)
--- NOTE | 2022-12-11 18:04 | NUR ---
PT SITTING UPRIGHT IN COMFORTABLE POSITION, SON AT BEDSIDE, NO CHANGE IN CONDITION, CALL LIGHT IN REACH, SAFETY MAINTAINED. AWAITING FOR MED/SURG BED
[2022-12-11] MEDS ORDERED: SODIUM ZIRCONIUM CYCLOSILICATE 10 GM POWD.PACK PO ONE (18:25)
[2022-12-11] MEDS ORDERED: ONDANSETRON 4 MG/2 ML VIAL IVP PRN (18:30)
[2022-12-11] MEDS ORDERED: DOCUSATE SODIUM 100 MG GELCAP PO PRN (18:30)
[2022-12-11] MEDS ORDERED: MORPHINE SULFATE 2 MG/ML SYR IVP PRN (18:30)
[2022-12-11] MEDS ORDERED: LORazepam 2 MG/ML VIAL IVP PRN (18:30)
[2022-12-11] MEDS: NACL 0.9% 1,000 ML IV SCH ×2 (18:37→18:50)
[2022-12-11 19:07] VITALS: O2SAT 99
[2022-12-11] MEDS: ACETAMINOPHEN 325 MG TAB PO PRN (19:11)
--- NOTE | 2022-12-11 19:21 | NUR ---
TRANSFER OF CARE TO [facility]. ALL QUESTIONS ANSWERED.
--- NOTE | 2022-12-11 19:34 | NUR ---
RECEIVED REPORT FROM DAY SHIFT NURSE. PT LYING IN BED WITH PAIN LEVEL 3/10. TYLENOL GIVEN BY DAY SHIFT NURSE. WILL CALL REPORT TO ADMITTING NURSE WHEN NURSE IS AVAILABLE.
--- NOTE | 2022-12-11 19:47 | NUR ---
REPORT GIVEN TO ZAHRA VAUGHAN MST.
[2022-12-11 19:48] VITALS: O2SAT 99
--- NOTE | 2022-12-11 20:03 | NUR ---
Patient will be admitted to care of DR. MEJIA AND ZAHRA VAUGHAN. Admited to MED-SURG. Will go to room 110A. Belongings list completed. Report to ZAHRA VAUGHAN.
[2022-12-11 20:10] VITALS: PULSE 67; RESP 14; O2SAT 97
--- NOTE | 2022-12-11 20:10 | NUR ---
PT WAS ADMITTED TO [facility] DEPARTMENT FROM ER VIA [facility] WITH DIAGNOSIS OF TEMITOPE. PT IS AOX4, AMBULATORY WITH ASSIST, ABLE TO VERBALIZE NEEDS AND ABLE TO FOLLOW COMMANDS. PT IS ON ROOM AIR AND ON 6 GRAM SODIUM DIET. PT HAS IV ON LEFT AC GAUGE 20 RUNNING WITH NS AT 70ML/HR. PT SKIN IS INTACT. NO COMPLAIN OF PAIN AT THIS TIME. NO S/S OF RESPIRATORY DISTRESS NOTED. PT WAS ORIENTED TO ROOM, BED BUTTON AND CALL LIGHT. ALL SAFETY MEASURES IMPLEMENTED. BED IN LOW POSITION, BED WHEELS ON LOCK AND CALL LIGHT WITHIN REACH.
--- NOTE | 2022-12-11 20:49 | NUR ---
NOTIFIED DR. MEJIA REGARDING PT BP- 170/72 WITH PULSE OF 67[address] MEJIA RDER HYDRALAZINE 10MG PO. ORDER WAS PIERRE AND CARRIED OUT.
[2022-12-11] MEDS: METOPROLOL 25 MG TAB PO SCH (20:52)
--- NOTE | 2022-12-11 20:52 | NUR ---
SCHEDULED AND PRESCRIBED MEDICATION WAS GIVEN TO PT PER MD ORDER. ALL SAFETY MEASURES IMPLEMENTED. BED IN LOW POSITION, BED WHEELS ON LOCK AND CALL LIGHT WITHIN REACH.
[2022-12-11] MEDS ORDERED: hydrALAZINE 10 MG TAB PO ONE (20:55)
[2022-12-11] MEDS: ZOLPIDEM 10 MG TAB PO PRN (21:20)
--- NOTE | 2022-12-11 21:20 | NUR ---
PT WAS GIVEN AMBIEN PER PT REQUEST. NO COMPLAIN OF PAIN. NO S/S OF RESPIRATORY DISTRESS NOTED. ALL SAFETY MEASURES IMPLEMENTED. BED IN LOW POSITION, BED WHEELS ON LOCK AND CALL LIGHT WITHIN REACH.
--- NOTE | 2022-12-11 22:00 | NUR ---
PT WAS GIVEN JELLO AND WARM BLANKET. NO COMPLAIN OF PAIN AT THIS TIME. NO S/S OF RESPIRATORY DISTRESS NOTED. ALL SAFETY MEASURES IMPLEMENTED. BED IN LOW POSITION, BED WHEELS ON LOCK AND CALL LIGHT WITHIN REACH.
[2022-12-11 23:07] VITALS: PULSE 67; RESP 14; O2SAT 97
[2022-12-12] VITALS: BP 159/72; PULSE 67; RESP 18; TEMP 97.8; O2SAT 97
--- NOTE | 2022-12-12 | NUR ---
PT IS ON SLEEP. CHEST RISE AND FALL SYMMETRICALLY NOTED. RESPIRATION IS EVEN AND UNLABORED. ALL SAFETY MEASURES IMPLEMENTED. BED IN LOW POSITION, BED WHEELS ON LOCK AND CALL LIGHT WITHIN REACH.
[2022-12-12] MEDS: NACL 0.9% 1,000 ML IV SCH (00:19)
--- NOTE | 2022-12-12 02:10 | NUR ---
CHECKED THE PT, STILL ON SLEEP. CHEST RISE AND FALL SYMMETRICALLY NOTED. RESPIRATION IS EVEN AND UNLABORED. ALL SAFETY MEASURES IMPLEMENTED. BED IN LOW POSITION, BED WHEELS ON LOCK AND CALL LIGHT WITHIN REACH.
--- NOTE | 2022-12-12 04:00 | NUR ---
PUT PUREWICK TO PT DUE TO PT FELT DIZZINESS EVERY TIME SHE WENT TO BATHROOM. NO COMPLAIN OF PAIN. NO S/S OF RESPIRATORY DISTRESS NOTED. ALL SAFETY MEASURES IMPLEMENTED. BED IN LOW POSITION, BED WHEELS ON LOCK AND CALL LIGHT WITHIN REACH.
[2022-12-12 06:38] LABS: BASOPHILS % (AUTO) 0.7 % (0.0-2.0); HEMATOCRIT 29.6 % (36-48); HEMOGLOBIN 10.5 g/dL (12.0-16.0); LYMPHOCYTES # (AUTO) 1.3 K/uL (2.5-16.5); LYMPHOCYTES % (AUTO) 37.8 % (20.5-51.1); MEAN CORPUSCULAR HEMOGLOBIN 34 pg (27-31); MEAN CORPUSCULAR HGB CONC 35 g/dL (33-37); MONOCYTES # (AUTO) 0.3 K/uL (0.8-1.0); MONOCYTES % (AUTO) 8.1 % (1.7-9.3); NEUTROPHILS # (AUTO) 1.9 K/uL (1.8-7.7); NEUTROPHILS % (AUTO) 52.4 % (42.2-75.2); PLATELET COUNT (AUTO) 196 K/uL (140-450); RED BLOOD CELL COUNT(AUTO) 3.08 MIL/uL (4.20-5.40); RED CELL DISTRIBUTION WIDTH 13.9 % (11.6-13.7); WHITE BLOOD COUNT (AUTO) 3.6 K/uL (4.8-10.8)
[2022-12-12 07:07] LABS: ANION GAP 11.3 (8-16); CARBON DIOXIDE 23.8 mmol/L (21-32); CHLORIDE 101 mmol/L (98-107); CREATININE 1.8 mg/dL (0.6-1.3); GLUCOSE 69 mg/dL (74-106); POTASSIUM 5.1 mmol/L (3.5-5.1); SODIUM SERUM 131 mmol/L (136-145); UREA NITROGEN, BLOOD 18 mg/dL (7-18)
--- NOTE | 2022-12-12 07:17 | NUR ---
PT IS STABLE. ENDORSED PT TO MORNING SHIFT NURSE FOR CONTINUITY OF CARE.
--- NOTE | 2022-12-12 07:18 | NUR ---
RECEIVED BEDSIDE REPORT FROM NIGHT NURSE FOR CONTINUITY OF CARE. PT IS AWAKE, NO SIGN OF DISTRESS. CALL LIGHT WITHIN REACH.
[2022-12-12 08:00] VITALS: BP 165/68; PULSE 57; RESP 18; TEMP 96.8; O2SAT 94; O2SAT 97
[2022-12-12] MEDS: DIVALPROEX 250 MG TABEC PO SCH (08:23)
[2022-12-12] MEDS: METOPROLOL 25 MG TAB PO SCH ×2 (08:24→21:12)
[2022-12-12] MEDS: ATORVASTATIN 20 MG TAB PO SCH (08:24)
[2022-12-12] MEDS: MAG SULF 2000 MG/WATER PREMIX 50 ML IV PRN (08:28)
--- NOTE | 2022-12-12 09:47 | NUR ---
PATIENT HAS BEEN SCREENED AND CATEGORIZED HIGH NUTRITION RISK. PATIENT WILL BE SEEN WITHIN 1-2 DAYS OF ADMISSION. 12/11/22-12/13/[address] FNS REFERRAL RECEIVED FOR REFUSE TO EAT > 3 DAYS
[2022-12-12 16:00] VITALS: BP 169/72; PULSE 55; RESP 18; TEMP 97.3; O2SAT 98
[2022-12-12] MEDS ORDERED: hydrALAZINE 10 MG TAB PO PRN (17:05)
--- NOTE | 2022-12-12 17:35 | NUR ---
12/12/22 RD INITIAL ASSESSMENT COMPLETED. PLEASE REFER TO NUTRITION ASSESSMENT UNDER CARE ACTIVITY FOR ESTIMATED NUTRITIONAL NEEDS. 1. CONTINUE 2 GM SODIUM DIET TOLERATED 2. RECOMMEND ENSURE 1X/DAY TO ENCOURAGE APPETITE. 3. MONITOR PO INTAKE, WEIGHT, AND NUTRITION RELATED LAB VALUES 4. RD TO FOLLOW-UP 3-5 DAYS, MODERATE RISK ADA [address] RD
[2022-12-12] MEDS ORDERED: hydrALAZINE 10 MG TAB ONE (18:10)
--- NOTE | 2022-12-12 18:18 | NUR ---
GAVE HYDRALAZINE 10MG PO PRN FOR BP MORE THAN 160 ORDERED BY MD. PT'S BP 169/72. PT IS STABLE, NO SIGNS OF DISTRESS.
--- NOTE | 2022-12-12 19:23 | NUR ---
GAVE BEDSIDE REPORT TO HUMAN RESOURCES OPERATIONS COORDINATOR NURSE FOR CONTINUITY OF CARE, PT IS SITTING ON THE CHAIR, NO SIGN OF DISTRESS. CALL LIGHT WITHIN REACH.
--- NOTE | 2022-12-12 19:24 | NUR ---
REASSESSMENT FOR HYDRALAZINE GIVEN 1824 : 165/66 P-54.
--- NOTE | 2022-12-12 19:24 | NUR ---
RECEIVED PATIENT IN BED AWAKE ALERT IN NO ACUTE DISTRESS. ON ROOM AIR. AMBULATORY. NO COMPLAINTS OF PAIN AT THIS TIME. IVF NS INFUSING ORDERED TO LEFT AC. CALL LIGHT WITHIN REACH. BED WHEELS LOCKED IN LOW POSITION. PATIENT USES BEDSIDE COMMODE.
[2022-12-12 20:00] VITALS: PULSE 54; RESP 16; O2SAT 99
--- NOTE | 2022-12-12 20:45 | NUR ---
ANSWERED CALL LIGHT, NEEDS ATTENDED AND MET.
[2022-12-12] MEDS: ZOLPIDEM 10 MG TAB PO PRN (22:32)
--- NOTE | 2022-12-13 03:11 | NUR ---
PATIENT IV ACCIDENTALLY PULLED OUT. STARTED A NEW IV LINT TO RIGHT FOREARM 22 GAUGE WITH GOOD RETURN OF BLOOD. TOLERATED WELL.
[2022-12-13 04:00] VITALS: BP 169/69; PULSE 54; RESP 16; TEMP 96.7; O2SAT 99
[2022-12-13 06:16] LABS: BASOPHILS % (AUTO) 0.7 % (0.0-2.0); EOSINOPHILS # (AUTO) 0.1 K/uL (0-0.4); EOSINOPHILS % (AUTO) 2.2 % (0.0-4.0); HEMATOCRIT 30.7 % (36-48); HEMOGLOBIN 10.7 g/dL (12.0-16.0); LYMPHOCYTES # (AUTO) 1.2 K/uL (2.5-16.5); LYMPHOCYTES % (AUTO) 37.8 % (20.5-51.1); MEAN CORPUSCULAR HEMOGLOBIN 34 pg (27-31); MEAN CORPUSCULAR HGB CONC 35 g/dL (33-37); MEAN CORPUSCULAR VOLUME 96.8 fL (80-94); MONOCYTES # (AUTO) 0.3 K/uL (0.8-1.0); MONOCYTES % (AUTO) 8.1 % (1.7-9.3); NEUTROPHILS # (AUTO) 1.7 K/uL (1.8-7.7); NEUTROPHILS % (AUTO) 51.2 % (42.2-75.2); PLATELET COUNT (AUTO) 190 K/uL (140-450); RED BLOOD CELL COUNT(AUTO) 3.17 MIL/uL (4.20-5.40); RED CELL DISTRIBUTION WIDTH 14.4 % (11.6-13.7); WHITE BLOOD COUNT (AUTO) 3.3 K/uL (4.8-10.8)
[2022-12-13 06:40] LABS: CARBON DIOXIDE 23.8 mmol/L (21-32); CHLORIDE 104 mmol/L (98-107); CREATININE 1.4 mg/dL (0.6-1.3); GLUCOSE 66 mg/dL (74-106); POTASSIUM 4.8 mmol/L (3.5-5.1); SODIUM SERUM 134 mmol/L (136-145); UREA NITROGEN, BLOOD 14 mg/dL (7-18)
--- NOTE | 2022-12-13 07:13 | NUR ---
BEDSIDE REPORT GIVEN TO AM NURSE FOR CONTINUITY OF CARE. PATIENT STABLE.
--- NOTE | 2022-12-13 07:14 | NUR ---
RECEIVED BEDSIDE REPORT FROM STEAM HAND NURSE FOR CONTINUITY OF CARE. PT IS ASLEEP, AWAKEN BY NAME. NO SIGN OF DISTRESS. CALL LIGHT WITHIN REACH.
[2022-12-13 08:00] VITALS: BP 152/50; PULSE 61; RESP 18; TEMP 96.9; O2SAT 98; O2SAT 99
[2022-12-13] MEDS: ATORVASTATIN 20 MG TAB PO SCH (08:49)
[2022-12-13] MEDS: DIVALPROEX 250 MG TABEC PO SCH (08:49)
[2022-12-13] MEDS: METOPROLOL 25 MG TAB PO SCH ×2 (08:49→21:35)
[2022-12-13] MEDS: NACL 0.9% 1,000 ML IV SCH ×2 (13:14→16:41)
--- NOTE | 2022-12-13 15:45 | NUR ---
DC PLANNIN YRS OLD FEMALE PATIENT WAS ADMITTED FROM HOME WITH A DX OF TEMITOPE. PATIENT HAS A HX OF HTN, CVA AND CKD. CT ABD SHOWED NO DEFINITE ACUTE ABDOMINAL OR PELVIC FINDING. ADMINISTERED IVF AND CONTINUED HOME MEDS. DC PLAN TO GO HOME WHEN STABLE CM TO FOLLOW Addendum: 12/14/22 at 1034 by LEOBARDO POMPA CM RECEIVED ODER FOR PATIENT TO GET HOME HEALTH FOR PT. FAXED OVER ALL PAPERWORK TO [facility] . WILL FOLLOW UP WITH UPDATES.
[2022-12-13 16:00] VITALS: BP 210/84; PULSE 56; RESP 18; TEMP 97.3; O2SAT 98
[2022-12-13] MEDS: hydrALAZINE 10 MG TAB PO PRN ×2 (16:37→17:05)
--- NOTE | 2022-12-13 17:05 | NUR ---
PT HAS A BP OF 214/93, MD INFORMED. GAVE PRN HYDRALAZINE. AWAITING FURTHER ORDERS. PT IS ASYMPTOMATIC, NO SIGNS OF DISTRESS. CALL LIGHT WITHIN REACH.
[2022-12-13] MEDS: hydrALAZINE 20 MG/ML VIAL IVP PRN (18:39)
--- NOTE | 2022-12-13 18:39 | NUR ---
PT'S VS STILL HIGH AT 194/83, HR 64. GAVE THE HYDRALAZINE 10 MG IVP PRN ORDERED. WASTED THE 10MG WITNESSED BY NASRIN. PT REMAINS ASYMPTOMATIC AND NO SIGN OF DISTRESS, CALL LIGHT WITHIN REACH.
--- NOTE | 2022-12-13 19:10 | NUR ---
GAVE BEDSIDE REPORT TO FRONT ATTENDANT FOR CONTINUITY OF CARE. PT IS AWAKE, NO SIGN OF DISTRESS. ENDORSED HYDRALAZINE ASSESSMENT. CALL LIGHT WITHIN REACH.
--- NOTE | 2022-12-13 19:15 | NUR ---
RECEIVED REPORT FROM DAY SHIFT NURSE FOR CONTINUITY OF CARE. PATIENT IS AWAKE ALERT AND ORIENTED. NO COMPLAINTS OF PAIN OR ANY DISCOMFORT. NO SOB NOTED ON ROOM AIR. IVF NS INFUSING AT 80 ML/HR ON THE RIGHT FOREARM. TOLERATING WELL. CALL LIGHT WITHIN REACH. ALL SAFETY MEASURES ARE IN PLACE. NEEDS ATTENDED TO.
[2022-12-13 20:00] VITALS: BP 152/74; PULSE 69; RESP 18; TEMP 97.6; O2SAT 100
[2022-12-13] MEDS: ACETAMINOPHEN 325 MG TAB PO PRN (21:37)
--- NOTE | 2022-12-13 21:37 | NUR ---
PATIENT COMPLAINED OF HEADACHE, MEDICATED WITH TYLENOL PO.
[2022-12-14] MEDS: ZOLPIDEM 10 MG TAB PO PRN (01:09)
[2022-12-14 06:52] LABS: ANION GAP 10.7 (8-16); CARBON DIOXIDE 23.2 mmol/L (21-32); CHLORIDE 107 mmol/L (98-107); CREATININE 1.3 mg/dL (0.6-1.3); GLUCOSE 74 mg/dL (74-106); POTASSIUM 4.9 mmol/L (3.5-5.1); SODIUM SERUM 136 mmol/L (136-145); UREA NITROGEN, BLOOD 13 mg/dL (7-18)
--- NOTE | 2022-12-14 07:25 | NUR ---
RECEIVED PT FROM CONTROL CLERK FOR CONTINUITY OF CARE. ALERT AND ORIENTED X 4. RESP. EVEN AND UNLABORED. IVF INFUSING WELL. NO C/O PAIN OR DISCOMFORT. CALL LIGHT KEPT WITHIN REACH. WILL CONTINUE TO MONITOR.
--- NOTE | 2022-12-14 07:34 | NUR ---
ALL NEEDS MET THROUGHOUT THE SHIFT. ENDORSED TO AM NURSE FOR CONTINUITY OF CARE. PATIENT STABLE.
[2022-12-14 08:00] VITALS: BP 196/75; PULSE 71; RESP 20; TEMP 96.7; O2SAT 99
[2022-12-14 08:15] LABS: BASOPHILS % (AUTO) 0.9 % (0.0-2.0); EOSINOPHILS # (AUTO) 0.1 K/uL (0-0.4); EOSINOPHILS % (AUTO) 1.9 % (0.0-4.0); HEMATOCRIT 29.8 % (36-48); HEMOGLOBIN 10.4 g/dL (12.0-16.0); LYMPHOCYTES # (AUTO) 1.1 K/uL (2.5-16.5); LYMPHOCYTES % (AUTO) 36.7 % (20.5-51.1); MEAN CORPUSCULAR HEMOGLOBIN 34 pg (27-31); MEAN CORPUSCULAR HGB CONC 35 g/dL (33-37); MEAN CORPUSCULAR VOLUME 96.8 fL (80-94); MONOCYTES # (AUTO) 0.3 K/uL (0.8-1.0); MONOCYTES % (AUTO) 9.6 % (1.7-9.3); NEUTROPHILS # (AUTO) 1.6 K/uL (1.8-7.7); NEUTROPHILS % (AUTO) 50.9 % (42.2-75.2); PLATELET COUNT (AUTO) 179 K/uL (140-450); RED BLOOD CELL COUNT(AUTO) 3.08 MIL/uL (4.20-5.40); RED CELL DISTRIBUTION WIDTH 14.1 % (11.6-13.7); WHITE BLOOD COUNT (AUTO) 3.1 K/uL (4.8-10.8)
[2022-12-14] MEDS: DIVALPROEX 250 MG TABEC PO SCH (08:42)
[2022-12-14] MEDS: METOPROLOL 25 MG TAB PO SCH (08:43)
[2022-12-14] MEDS: ATORVASTATIN 20 MG TAB PO SCH (08:43)
--- NOTE | 2022-12-14 08:53 | NUR ---
SCHEDULED MEDICATIONS GIVEN. TOLERATED.
[2022-12-14 10:10] VITALS: BP 185/79; PULSE 82
--- NOTE | 2022-12-14 10:10 | NUR ---
RECHECKED BP 185/79, P 82. NO C/O DIZZINESS, NO HEADACHE NOTED.
[2022-12-14] MEDS: NACL 0.9% 1,000 ML IV SCH (10:26)
[2022-12-14] MEDS: MAG SULF 2000 MG/WATER PREMIX 50 ML IV PRN (10:28)
[2022-12-14] MEDS: hydrALAZINE 20 MG/ML VIAL IVP PRN (10:29)
[2022-12-14 16:00] VITALS: BP 204/85; PULSE 63; RESP 18; TEMP 97.6; O2SAT 100
--- NOTE | 2022-12-14 16:04 | NUR ---
PHYSICAL THERAPY CO-SIGN The Physical Therapy Progress Notes documented by Photocomposing Machine Operator have been reviewed. Reviewed/Co-Signed by: Saundra Wing PT Documentation Done by:MORRIS HERNANDEZ CLIENT TECHNICAL SPECIALIST Addendum: 12/14/22 at 1604 by Saundra Wing PT Amended: Links added.
--- NOTE | 2022-12-14 16:52 | NUR ---
NOTED BLOOD PRESSURE 204/[address] JONES NOTIFIED WITH NEW ORDERS: RESUMED HOME MEDICATIONS: HYDRALAZINE 100 MG PO TID, LISINOPRIL 20 MG Q 12H. ORDER NOTED AND CARRIED OUT.
--- NOTE | 2022-12-14 16:53 | NUR ---
PER DR. JONES IF BLOOD PRESSURE STABLE, MAY DISCHARGE TO HOME.
[2022-12-14] MEDS ORDERED: hydrALAZINE 25 MG TAB PO SCH ×2 (17:00)
[2022-12-14] MEDS ORDERED: NON-FORMULARY ITEM (Hydralazine HCl (Hydralazine Hcl) 1 TAB) PO SCH (17:00)
[2022-12-14] MEDS ORDERED: lisinopriL 20 MG TAB PO SCH ×2 (17:00→21:00)
--- NOTE | 2022-12-14 17:07 | NUR ---
HYDRALAZINE 100 MG PO AND LISINOPRIL 20 MG PO WAS GIVEN. TOLERATED WELL.
[2022-12-14 18:30] VITALS: BP 141/67; PULSE 83
--- NOTE | 2022-12-14 18:30 | NUR ---
RECHECKED BP 141/67, P 83. DR JONES NOTIFIED, PT STABLE FOR DISCHARGE.
--- NOTE | 2022-12-14 19:00 | NUR ---
PT LEFT. DISCHARGE TO HOME. TRANSPORTED BY PRIVATE CAR. ACCOMPANIED BY HER SON. ALERT AND ORIENTED X 4. RESP. EVEN AND UNLABORED. SKIN INTACT. DISCHARGE PAPERWORK DISCUSS AND SIGNED BY PT. ALL PERSONAL BELONGINGS TAKEN. ID BAND AND IV REMOVED. REMAINS STABLE.
== END 2022-12-14 19:00 | disposition home health service (06) | DRG 391 ==
LOC: MED 15:57 → MMU 18:30 → MTU 18:47
PROVIDERS: ADMIT Family Medicine; ATTEND Family Medicine
DX: K52.9 Noninfective gastroenteritis and colitis, unspecified (principal); N17.0 Acute kidney failure with tubular necrosis; E87.1 Hypo-osmolality and hyponatremia; E86.0 Dehydration; E83.42 Hypomagnesemia; D50.9 Iron deficiency anemia, unspecified; E87.5 Hyperkalemia; I12.9 Hypertensive chronic kidney disease with stage 1 through stage 4 chronic kidney disease, or unspecified chronic kidney disease; N18.9 Chronic kidney disease, unspecified; Z86.73 Personal history of transient ischemic attack (TIA), and cerebral infarction without residual deficits; Z79.899 Other long term (current) drug therapy
CPT/HCPCS: 36415; 74150; 80048; 80053; 81003; 83690; 83735; 85025; 87081; 97110; 97112; 97116; 97530; 99285; J0360; J2405; J3475

== ENCOUNTER 2023-04-17 19:12 | Emergency (ER) | payer OTHER, MEDICAID ==
[~2023-04-17] VITALS: Ht 167.6 cm; Wt 72.6 kg
[~2023-04-17 19:12] MED LIST changes: -LORA10TA19 PO; -METO25TA14 PO; -ONDA-188 PO; -SULF-59 PO
[2023-04-17 19:45] VITALS: BP 186/84; PULSE 73; RESP 17; TEMP 98.1; O2SAT 98
[2023-04-17 21:28] LABS: APPEARANCE,URINE CLEAR (CLEAR); BILIRUBIN,URINE NEGATIVE (NEGATIVE); BLOOD, URINE NEGATIVE (NEGATIVE); COLOR,URINE YELLOW (YELLOW); LEUKOCYTE ESTERASE ,URINE TRACE (NEGATIVE); NITRITE, URINE NEGATIVE (NEGATIVE); PH,URINE 6.5 (5.0-9.0); PROTEIN,URINE NEGATIVE (NEGATIVE); UGLUCOSE NEGATIVE (NEGATIVE); UROBILINOGEN,URINE 0.2 EU/dL (0.2 - 1)
[2023-04-17 21:39] LABS: BACTERIA,URINE FEW /HPF (None Seen); MUCUS,URINE 1+ /LPF (None Seen); RBC,URINE 0-5 /HPF (0-5); SQUAMOUS EPITHELIAL CELL,UR 0-3 (FEW) /LPF (0-3 (FEW)); TRICHOMONAS,URINE None Seen /HPF (None Seen); WBC,URINE 0-5 /HPF (0-5); YEAST,URINE None Seen /HPF (None Seen)
[2023-04-17 22:09] LABS: BASOPHILS % (AUTO) 0.6 % (0.0-2.0); EOSINOPHILS # (AUTO) 0.2 K/uL (0-0.4); EOSINOPHILS % (AUTO) 5.1 % (0.0-4.0); HEMATOCRIT 33.2 % (36-48); HEMOGLOBIN 11.3 g/dL (12.0-16.0); LYMPHOCYTES # (AUTO) 1.5 K/uL (2.5-16.5); LYMPHOCYTES % (AUTO) 37.4 % (20.5-51.1); MEAN CORPUSCULAR HEMOGLOBIN 32 pg (27-31); MEAN CORPUSCULAR HGB CONC 34 g/dL (33-37); MEAN CORPUSCULAR VOLUME 94.9 fL (80-94); MONOCYTES # (AUTO) 0.6 K/uL (0.8-1.0); MONOCYTES % (AUTO) 14.6 % (1.7-9.3); NEUTROPHILS # (AUTO) 1.7 K/uL (1.8-7.7); NEUTROPHILS % (AUTO) 42.3 % (42.2-75.2); PLATELET COUNT (AUTO) 182 K/uL (140-450); RED CELL DISTRIBUTION WIDTH 14.3 % (11.6-13.7); WHITE BLOOD COUNT (AUTO) 3.9 K/uL (4.8-10.8)
[2023-04-17 22:20] LABS: ANION GAP 12.7 (8-16); CARBON DIOXIDE 26.6 mmol/L (21-32); CHLORIDE 105 mmol/L (98-107); CREATININE 1.5 mg/dL (0.6-1.3); GLUCOSE 97 mg/dL (74-106); POTASSIUM 4.3 mmol/L (3.5-5.1); SODIUM SERUM 140 mmol/L (136-145); UREA NITROGEN, BLOOD 17 mg/dL (7-18)
[2023-04-17] MEDS ORDERED: KETOROLAC 60 MG/2 ML VIAL IM ONE (23:10)
[2023-04-17 23:41] VITALS: BP 205/93; PULSE 68; RESP 16; TEMP 98.1; O2SAT 99
== END 2023-04-17 23:41 | disposition home or self-care (01) ==
LOC: MED 19:12
DX: R31.9 Hematuria, unspecified (principal); R51.9 Headache, unspecified; I12.9 Hypertensive chronic kidney disease with stage 1 through stage 4 chronic kidney disease, or unspecified chronic kidney disease; N18.9 Chronic kidney disease, unspecified; Z86.73 Personal history of transient ischemic attack (TIA), and cerebral infarction without residual deficits
CPT/HCPCS: 36415; 80048; 81001; 81025; 83690; 85025; 96372; 99283; J1885

== ENCOUNTER 2023-11-03 09:35 | Inpatient (IN) | payer MEDICARE, MEDICAID ==
[~2023-11-03] VITALS: Ht 165.1 cm; Wt 68.0 kg
[~2023-11-03 09:35] MED LIST changes: -LISI-487 PO; +LISI-953 PO
[2023-11-03 09:45] VITALS: BP 198/87; PULSE 88; RESP 18; TEMP 97.3; O2SAT 98
[2023-11-03] MEDS ORDERED: cefTRIAXone 1,000 MG VIAL ONE (10:15)
[2023-11-03 10:16] LABS: BASOPHILS % (AUTO) 0.6 % (0.0-2.0); HEMATOCRIT 33.6 % (36-48); HEMOGLOBIN 11.5 g/dL (12.0-16.0); LYMPHOCYTES # (AUTO) 1.5 K/uL (2.5-16.5); LYMPHOCYTES % (AUTO) 34.3 % (20.5-51.1); MEAN CORPUSCULAR HEMOGLOBIN 32 pg (27-31); MEAN CORPUSCULAR HGB CONC 34 g/dL (33-37); MEAN CORPUSCULAR VOLUME 94.1 fL (80-94); MONOCYTES # (AUTO) 0.4 K/uL (0.8-1.0); NEUTROPHILS # (AUTO) 2.4 K/uL (1.8-7.7); NEUTROPHILS % (AUTO) 55.1 % (42.2-75.2); PLATELET COUNT (AUTO) 192 K/uL (140-450); RED BLOOD CELL COUNT(AUTO) 3.57 MIL/uL (4.20-5.40); RED CELL DISTRIBUTION WIDTH 14.3 % (11.6-13.7); WHITE BLOOD COUNT (AUTO) 4.4 K/uL (4.8-10.8)
[2023-11-03] MEDS: NACL 0.9% 1,000 ML IV SCH ×2 (10:16→12:20)
[2023-11-03] MEDS: cefTRIAXone 1,000 MG in DEXT 5% MINI-BAG PLUS 50 ML IV ONE (10:18)
[2023-11-03 10:31] LABS: ANION GAP 13.1 (8-16); CALCIUM 9.1 mg/dL (8.5-10.1); CARBON DIOXIDE 26.7 mmol/L (21-32); CHLORIDE 102 mmol/L (98-107); CREATININE 1.4 mg/dL (0.6-1.3); GLUCOSE 97 mg/dL (74-106); POTASSIUM 4.8 mmol/L (3.5-5.1); SODIUM SERUM 137 mmol/L (136-145); UREA NITROGEN, BLOOD 27 mg/dL (7-18)
[2023-11-03 10:39] LABS: ALANINE AMINOTRANSFERASE 20 U/L (12-78); ALBUMIN 3.6 g/dL (3.4-5.0); ALKALINE PHOSPHATASE 68 U/L (50-136); ASPARTATE AMINOTRANSFERASE 22 U/L (15-37); BILIRUBIN,DIRECT 0.1 mg/dL (0.0-0.3); CREATINE KINASE, TOTAL 92 U/L (26-192); LACTIC ACID 1.7 mmol/L (0.4-2.0); TOTAL BILIRUBIN 0.6 mg/dL (0.0-1.0); TOTAL PROTEIN, SERUM 7.7 g/dL (6.4-8.2)
[2023-11-03 11:23] LABS: APPEARANCE,URINE CLEAR (CLEAR); BILIRUBIN,URINE NEGATIVE (NEGATIVE); BLOOD, URINE NEGATIVE (NEGATIVE); COLOR,URINE YELLOW (YELLOW); LEUKOCYTE ESTERASE ,URINE TRACE (NEGATIVE); NITRITE, URINE POSITIVE (NEGATIVE); PH,URINE 7.5 (5.0-9.0); PROTEIN,URINE NEGATIVE (NEGATIVE); UGLUCOSE NEGATIVE (NEGATIVE); UROBILINOGEN,URINE 0.2 EU/dL (0.2 - 1)
[2023-11-03 11:30] LABS: BACTERIA,URINE >30 (MANY) /HPF (None Seen); SQUAMOUS EPITHELIAL CELL,UR 0-3 (FEW) /LPF (0-3 (FEW)); WBC,URINE 0-5 /HPF (0-5)
[2023-11-03 11:33] LABS: FLU A ANTIGEN negative (NEGATIVE); FLU B ANTIGEN negative (NEGATIVE)
[2023-11-03] MEDS ORDERED: HYDROcodone/APAP 5/325 MG 1 TAB TAB PO PRN (12:10)
[2023-11-03] MEDS ORDERED: ONDANSETRON 4 MG/2 ML VIAL IVP PRN (12:10)
[2023-11-03] MEDS: hydrALAZINE 20 MG/ML VIAL IVP PRN (12:49)
[2023-11-03] MEDS ORDERED: DIVA-56 PO (16:20)
[2023-11-03] MEDS ORDERED: HYDR100T65 PO (16:20)
[2023-11-03] MEDS ORDERED: ATOR40TA40 PO (16:20)
[2023-11-03] MEDS ORDERED: LISI40TA8 PO (16:20)
[2023-11-03] MEDS ORDERED: ATI.5 PO (16:20)
[2023-11-03] MEDS ORDERED: ISOS30TE68 PO (16:20)
[2023-11-03] MEDS: ISOSORBIDE DINITRATE 20 MG TAB PO SCH (17:00)
[2023-11-03] MEDS: hydrALAZINE 25 MG TAB PO SCH (17:00)
[2023-11-03 20:00] VITALS: PULSE 71; RESP 18; O2SAT 99
[2023-11-03] MEDS: APIXABAN 2.5 MG TAB PO SCH (21:51)
[2023-11-03] MEDS: LORazepam 1 MG TAB PO PRN (21:52)
[2023-11-03] MEDS: lisinopriL 20 MG TAB PO SCH (21:52)
[2023-11-04 04:00] VITALS: BP 141/66; PULSE 70; RESP 19; TEMP 97.4; O2SAT 96
[2023-11-04 06:13] LABS: BASOPHILS % (AUTO) 0.7 % (0.0-2.0); EOSINOPHILS # (AUTO) 0.1 K/uL (0-0.4); EOSINOPHILS % (AUTO) 1.5 % (0.0-4.0); HEMATOCRIT 28.2 % (36-48); HEMOGLOBIN 9.7 g/dL (12.0-16.0); LYMPHOCYTES # (AUTO) 1.1 K/uL (2.5-16.5); LYMPHOCYTES % (AUTO) 32.5 % (20.5-51.1); MEAN CORPUSCULAR HEMOGLOBIN 32 pg (27-31); MEAN CORPUSCULAR HGB CONC 34 g/dL (33-37); MEAN CORPUSCULAR VOLUME 94.2 fL (80-94); MONOCYTES # (AUTO) 0.3 K/uL (0.8-1.0); MONOCYTES % (AUTO) 9.9 % (1.7-9.3); NEUTROPHILS # (AUTO) 1.9 K/uL (1.8-7.7); NEUTROPHILS % (AUTO) 55.4 % (42.2-75.2); PLATELET COUNT (AUTO) 168 K/uL (140-450); RED CELL DISTRIBUTION WIDTH 14.2 % (11.6-13.7); WHITE BLOOD COUNT (AUTO) 3.5 K/uL (4.8-10.8)
[2023-11-04 06:41] LABS: ALANINE AMINOTRANSFERASE 16 U/L (12-78); ALBUMIN 2.9 g/dL (3.4-5.0); ALKALINE PHOSPHATASE 50 U/L (50-136); ANION GAP 10.8 (8-16); ASPARTATE AMINOTRANSFERASE 14 U/L (15-37); CALCIUM 8.4 mg/dL (8.5-10.1); CARBON DIOXIDE 23.8 mmol/L (21-32); CHLORIDE 108 mmol/L (98-107); CREATININE 1.1 mg/dL (0.6-1.3); GLUCOSE 84 mg/dL (74-106); MAGNESIUM 1.7 mg/dL (1.8-2.4); PHOSPHORUS 3.4 mg/dL (2.5-4.9); POTASSIUM 4.6 mmol/L (3.5-5.1); SODIUM SERUM 138 mmol/L (136-145); TOTAL BILIRUBIN 0.4 mg/dL (0.0-1.0); TOTAL PROTEIN, SERUM 6.1 g/dL (6.4-8.2); UREA NITROGEN, BLOOD 23 mg/dL (7-18)
[2023-11-04 06:56] LABS: FREE T4 (FREE THYROXINE) 1.05 ng/dL (0.76-1.46); THYROID STIMULATING HORMONE 6.51 uIU/mL (0.34-3.74)
[2023-11-04 08:00] VITALS: BP 152/69; PULSE 65; RESP 17; TEMP 97.8; O2SAT 96
[2023-11-04] MEDS: PANTOPRAZOLE 40 MG INJ VIAL IVP SCH (08:20)
[2023-11-04] MEDS: ATORVASTATIN 20 MG TAB PO SCH (08:21)
[2023-11-04] MEDS: DIVALPROEX 250 MG TABEC PO SCH (08:21)
[2023-11-04] MEDS: DOCUSATE SODIUM 100 MG GELCAP PO SCH (08:25)
[2023-11-04 12:00] VITALS: BP 127/71; PULSE 67; RESP 18; TEMP 97.8; O2SAT 97
[2023-11-04] MEDS: MAG SULF 2000 MG/WATER PREMIX 50 ML IV SCH (12:22)
[2023-11-04 16:00] VITALS: BP 124/75; PULSE 70; RESP 18; TEMP 98.8; O2SAT 98
[2023-11-04] MEDS: hydrALAZINE 25 MG TAB ONE ×2 (17:27)
[2023-11-04 20:01] VITALS: BP 154/69; PULSE 79; RESP 18; TEMP 98; O2SAT 95
[2023-11-04 20:02] VITALS: PULSE 79; RESP 18; O2SAT 95
[2023-11-04] MEDS: ZOLPIDEM 5 MG TAB PO PRN (22:10)
[2023-11-04] MEDS ORDERED: cefTRIAXone 1,000 MG VIAL ONE (22:58)
[2023-11-05 04:52] VITALS: BP 148/79; PULSE 81; RESP 18; TEMP 97.9; O2SAT 96
[2023-11-05 06:51] LABS: BASOPHILS % (AUTO) 0.6 % (0.0-2.0); EOSINOPHILS # (AUTO) 0.1 K/uL (0-0.4); HEMATOCRIT 28.3 % (36-48); HEMOGLOBIN 9.6 g/dL (12.0-16.0); LYMPHOCYTES # (AUTO) 1.5 K/uL (2.5-16.5); LYMPHOCYTES % (AUTO) 35.3 % (20.5-51.1); MEAN CORPUSCULAR HEMOGLOBIN 32 pg (27-31); MEAN CORPUSCULAR HGB CONC 34 g/dL (33-37); MEAN CORPUSCULAR VOLUME 94.6 fL (80-94); MONOCYTES # (AUTO) 0.5 K/uL (0.8-1.0); NEUTROPHILS # (AUTO) 2.1 K/uL (1.8-7.7); NEUTROPHILS % (AUTO) 50.1 % (42.2-75.2); PLATELET COUNT (AUTO) 169 K/uL (140-450); RED BLOOD CELL COUNT(AUTO) 2.99 MIL/uL (4.20-5.40); RED CELL DISTRIBUTION WIDTH 13.9 % (11.6-13.7); WHITE BLOOD COUNT (AUTO) 4.2 K/uL (4.8-10.8)
[2023-11-05 07:52] LABS: ALANINE AMINOTRANSFERASE 13 U/L (12-78); ALBUMIN 2.8 g/dL (3.4-5.0); ALKALINE PHOSPHATASE 51 U/L (50-136); ANION GAP 13.2 (8-16); ASPARTATE AMINOTRANSFERASE 15 U/L (15-37); CALCIUM 8.6 mg/dL (8.5-10.1); CARBON DIOXIDE 23.4 mmol/L (21-32); CHLORIDE 106 mmol/L (98-107); CREATININE 1.3 mg/dL (0.6-1.3); GLUCOSE 83 mg/dL (74-106); MAGNESIUM 1.9 mg/dL (1.8-2.4); PHOSPHORUS 3.7 mg/dL (2.5-4.9); POTASSIUM 4.6 mmol/L (3.5-5.1); SODIUM SERUM 138 mmol/L (136-145); TOTAL BILIRUBIN 0.4 mg/dL (0.0-1.0); TOTAL PROTEIN, SERUM 6.2 g/dL (6.4-8.2); UREA NITROGEN, BLOOD 21 mg/dL (7-18)
[2023-11-05 08:00] VITALS: BP 118/85; PULSE 71; PULSE 75; RESP 18; TEMP 98.1; O2SAT 96; O2SAT 98
[2023-11-05 14:28] VITALS: BP 180/84; PULSE 74
[2023-11-05 15:30] VITALS: BP 159/74; PULSE 80
[2023-11-05 16:00] VITALS: BP 171/76; PULSE 80; RESP 18; TEMP 96.9; O2SAT 97
[2023-11-05 20:00] VITALS: BP 177/76; PULSE 85; RESP 18; TEMP 97.1; O2SAT 95; O2SAT 97
[2023-11-06] VITALS (7 sets, daily range): BP systolic 135–183; BP diastolic 58–85; PULSE 71–83; RESP 16–20; TEMP 97.3–207.3; O2SAT 95–99
[2023-11-06] MEDS: ACETAMINOPHEN 325 MG TAB PO PRN (01:38)
[2023-11-06 06:50] LABS: BASOPHILS % (AUTO) 0.9 % (0.0-2.0); EOSINOPHILS # (AUTO) 0.1 K/uL (0-0.4); HEMATOCRIT 28.8 % (36-48); LYMPHOCYTES # (AUTO) 1.3 K/uL (2.5-16.5); LYMPHOCYTES % (AUTO) 31.8 % (20.5-51.1); MEAN CORPUSCULAR HEMOGLOBIN 32 pg (27-31); MEAN CORPUSCULAR HGB CONC 35 g/dL (33-37); MEAN CORPUSCULAR VOLUME 93.6 fL (80-94); MONOCYTES # (AUTO) 0.5 K/uL (0.8-1.0); MONOCYTES % (AUTO) 12.3 % (1.7-9.3); NEUTROPHILS # (AUTO) 2.2 K/uL (1.8-7.7); PLATELET COUNT (AUTO) 167 K/uL (140-450); RED BLOOD CELL COUNT(AUTO) 3.08 MIL/uL (4.20-5.40); RED CELL DISTRIBUTION WIDTH 14.3 % (11.6-13.7); WHITE BLOOD COUNT (AUTO) 4.1 K/uL (4.8-10.8)
[2023-11-06 07:19] LABS: ALANINE AMINOTRANSFERASE 15 U/L (12-78); ALKALINE PHOSPHATASE 52 U/L (50-136); ANION GAP 11.5 (8-16); ASPARTATE AMINOTRANSFERASE 19 U/L (15-37); CALCIUM 8.5 mg/dL (8.5-10.1); CARBON DIOXIDE 25.7 mmol/L (21-32); CHLORIDE 104 mmol/L (98-107); CREATININE 1.4 mg/dL (0.6-1.3); GLUCOSE 87 mg/dL (74-106); MAGNESIUM 1.7 mg/dL (1.8-2.4); PHOSPHORUS 3.7 mg/dL (2.5-4.9); POTASSIUM 4.2 mmol/L (3.5-5.1); SODIUM SERUM 137 mmol/L (136-145); TOTAL BILIRUBIN 0.4 mg/dL (0.0-1.0); TOTAL PROTEIN, SERUM 6.5 g/dL (6.4-8.2); UREA NITROGEN, BLOOD 17 mg/dL (7-18)
[2023-11-06] MEDS: NACL 0.45% 1,000 ML IV SCH (18:05)
[2023-11-07 00:01] VITALS: BP 158/59; PULSE 72; RESP 16; TEMP 98.3; O2SAT 98
[2023-11-07 04:00] VITALS: BP 145/67; PULSE 72; RESP 18; TEMP 97; O2SAT 97
[2023-11-07 06:50] LABS: BASOPHILS % (AUTO) 0.6 % (0.0-2.0); EOSINOPHILS # (AUTO) 0.1 K/uL (0-0.4); EOSINOPHILS % (AUTO) 2.5 % (0.0-4.0); HEMATOCRIT 27.5 % (36-48); HEMOGLOBIN 9.6 g/dL (12.0-16.0); LYMPHOCYTES # (AUTO) 1.4 K/uL (2.5-16.5); LYMPHOCYTES % (AUTO) 33.6 % (20.5-51.1); MEAN CORPUSCULAR HEMOGLOBIN 33 pg (27-31); MEAN CORPUSCULAR HGB CONC 35 g/dL (33-37); MEAN CORPUSCULAR VOLUME 93.5 fL (80-94); MONOCYTES # (AUTO) 0.5 K/uL (0.8-1.0); MONOCYTES % (AUTO) 12.8 % (1.7-9.3); NEUTROPHILS # (AUTO) 2.1 K/uL (1.8-7.7); NEUTROPHILS % (AUTO) 50.5 % (42.2-75.2); PLATELET COUNT (AUTO) 171 K/uL (140-450); RED BLOOD CELL COUNT(AUTO) 2.95 MIL/uL (4.20-5.40); RED CELL DISTRIBUTION WIDTH 13.9 % (11.6-13.7); WHITE BLOOD COUNT (AUTO) 4.2 K/uL (4.8-10.8)
[2023-11-07 07:26] LABS: ALANINE AMINOTRANSFERASE 16 U/L (12-78); ALBUMIN 2.9 g/dL (3.4-5.0); ALKALINE PHOSPHATASE 64 U/L (50-136); ANION GAP 12.8 (8-16); ASPARTATE AMINOTRANSFERASE 20 U/L (15-37); CALCIUM 8.3 mg/dL (8.5-10.1); CARBON DIOXIDE 24.4 mmol/L (21-32); CHLORIDE 102 mmol/L (98-107); CREATININE 1.3 mg/dL (0.6-1.3); GLUCOSE 93 mg/dL (74-106); MAGNESIUM 1.6 mg/dL (1.8-2.4); PHOSPHORUS 4.1 mg/dL (2.5-4.9); POTASSIUM 4.2 mmol/L (3.5-5.1); SODIUM SERUM 135 mmol/L (136-145); TOTAL BILIRUBIN 0.3 mg/dL (0.0-1.0); TOTAL PROTEIN, SERUM 6.4 g/dL (6.4-8.2); UREA NITROGEN, BLOOD 21 mg/dL (7-18)
[2023-11-07 08:00] VITALS: BP 172/76; PULSE 79; RESP 18; TEMP 97.1; O2SAT 95; O2SAT 96
[2023-11-07] MEDS: atenoloL 25 MG TAB PO SCH (13:12)
[2023-11-07 15:20] VITALS: BP 128/74; PULSE 60; RESP 18; TEMP 97.4
[2023-11-07 16:00] VITALS: BP 161/72; PULSE 57; RESP 18; TEMP 97.6; O2SAT 99
[2023-11-07] MEDS ORDERED: ISOS20TA13 PO (16:11)
[2023-11-07] MEDS ORDERED: ROC1PM IV ×2 (16:11→17:13)
[2023-11-07] MEDS ORDERED: ATEN25TA2 PO (16:11)
[2023-11-07] MEDS ORDERED: MAGNESIUM OXIDE 400 MG TAB PO ONE (16:45)
[2023-11-07] MEDS: MAGNESIUM OXIDE 400 MG TAB PO SCH (17:23)
[2023-11-07 20:00] VITALS: BP 172/74; PULSE 64; RESP 18; TEMP 97.6; O2SAT 96; O2SAT 97
[2023-11-08 04:00] VITALS: BP 159/99; PULSE 64; RESP 18; TEMP 96.8; O2SAT 96
[2023-11-08 07:02] LABS: BASOPHILS % (AUTO) 0.5 % (0.0-2.0); EOSINOPHILS # (AUTO) 0.1 K/uL (0-0.4); EOSINOPHILS % (AUTO) 1.8 % (0.0-4.0); HEMATOCRIT 29.9 % (36-48); HEMOGLOBIN 10.3 g/dL (12.0-16.0); LYMPHOCYTES # (AUTO) 1.6 K/uL (2.5-16.5); LYMPHOCYTES % (AUTO) 38.4 % (20.5-51.1); MEAN CORPUSCULAR HEMOGLOBIN 32 pg (27-31); MEAN CORPUSCULAR HGB CONC 35 g/dL (33-37); MONOCYTES # (AUTO) 0.5 K/uL (0.8-1.0); MONOCYTES % (AUTO) 11.4 % (1.7-9.3); NEUTROPHILS % (AUTO) 47.9 % (42.2-75.2); PLATELET COUNT (AUTO) 169 K/uL (140-450); RED BLOOD CELL COUNT(AUTO) 3.22 MIL/uL (4.20-5.40); RED CELL DISTRIBUTION WIDTH 13.9 % (11.6-13.7); WHITE BLOOD COUNT (AUTO) 4.2 K/uL (4.8-10.8)
[2023-11-08 07:26] LABS: ALANINE AMINOTRANSFERASE 17 U/L (12-78); ALBUMIN 3.2 g/dL (3.4-5.0); ALKALINE PHOSPHATASE 56 U/L (50-136); ANION GAP 11.5 (8-16); ASPARTATE AMINOTRANSFERASE 24 U/L (15-37); CALCIUM 8.8 mg/dL (8.5-10.1); CARBON DIOXIDE 25.5 mmol/L (21-32); CHLORIDE 101 mmol/L (98-107); CREATININE 1.2 mg/dL (0.6-1.3); GLUCOSE 87 mg/dL (74-106); MAGNESIUM 1.6 mg/dL (1.8-2.4); PHOSPHORUS 3.7 mg/dL (2.5-4.9); SODIUM SERUM 134 mmol/L (136-145); TOTAL BILIRUBIN 0.4 mg/dL (0.0-1.0); TOTAL PROTEIN, SERUM 6.8 g/dL (6.4-8.2); UREA NITROGEN, BLOOD 17 mg/dL (7-18)
[2023-11-08 08:00] VITALS: BP 176/68; PULSE 63; RESP 18; TEMP 97.4; O2SAT 97
[2023-11-08] MEDS: MAGNESIUM OXIDE 400 MG TAB PO PRN (08:55)
[2023-11-08 15:25] VITALS: O2SAT 97
[2023-11-08 16:00] VITALS: BP 142/62; PULSE 55; RESP 18; TEMP 98; O2SAT 97
[2023-11-08 20:00] VITALS: BP 168/70; PULSE 62; RESP 18; TEMP 97.9; O2SAT 97
[2023-11-09] VITALS: BP 145/62; PULSE 63; RESP 18; TEMP 97.5; O2SAT 97
[2023-11-09 04:00] VITALS: BP 153/77; PULSE 66; RESP 18; TEMP 97.1; O2SAT 97
[2023-11-09 07:12] LABS: BASOPHILS % (AUTO) 0.9 % (0.0-2.0); EOSINOPHILS # (AUTO) 0.1 K/uL (0-0.4); HEMATOCRIT 29.1 % (36-48); HEMOGLOBIN 9.9 g/dL (12.0-16.0); LYMPHOCYTES # (AUTO) 1.7 K/uL (2.5-16.5); LYMPHOCYTES % (AUTO) 34.6 % (20.5-51.1); MEAN CORPUSCULAR HEMOGLOBIN 32 pg (27-31); MEAN CORPUSCULAR HGB CONC 34 g/dL (33-37); MEAN CORPUSCULAR VOLUME 93.6 fL (80-94); MONOCYTES # (AUTO) 0.5 K/uL (0.8-1.0); MONOCYTES % (AUTO) 10.7 % (1.7-9.3); NEUTROPHILS # (AUTO) 2.6 K/uL (1.8-7.7); NEUTROPHILS % (AUTO) 51.8 % (42.2-75.2); PLATELET COUNT (AUTO) 165 K/uL (140-450); RED BLOOD CELL COUNT(AUTO) 3.11 MIL/uL (4.20-5.40); RED CELL DISTRIBUTION WIDTH 13.9 % (11.6-13.7); WHITE BLOOD COUNT (AUTO) 4.9 K/uL (4.8-10.8)
[2023-11-09 08:00] VITALS: BP 156/62; PULSE 60; RESP 16; TEMP 97.3; O2SAT 98
[2023-11-09 08:06] LABS: ALANINE AMINOTRANSFERASE 16 U/L (12-78); ALKALINE PHOSPHATASE 54 U/L (50-136); ANION GAP 10.8 (8-16); ASPARTATE AMINOTRANSFERASE 22 U/L (15-37); CALCIUM 8.6 mg/dL (8.5-10.1); CARBON DIOXIDE 26.9 mmol/L (21-32); CHLORIDE 98 mmol/L (98-107); CREATININE 1.5 mg/dL (0.6-1.3); GLUCOSE 83 mg/dL (74-106); MAGNESIUM 1.7 mg/dL (1.8-2.4); PHOSPHORUS 3.6 mg/dL (2.5-4.9); POTASSIUM 4.7 mmol/L (3.5-5.1); SODIUM SERUM 131 mmol/L (136-145); TOTAL BILIRUBIN 0.3 mg/dL (0.0-1.0); TOTAL PROTEIN, SERUM 6.5 g/dL (6.4-8.2); UREA NITROGEN, BLOOD 22 mg/dL (7-18)
[2023-11-09] MEDS: amLODIPine 5 MG TAB PO SCH (11:40)
[2023-11-09] MEDS: NACL 0.9% 1,000 ML IV SCH (11:40)
[2023-11-09 12:42] VITALS: BP 156/62; PULSE 55; RESP 16; TEMP 97.3
== END 2023-11-09 13:20 | disposition home health service (06) | DRG 683 ==
LOC: MED 09:35 → MMU 12:09 → MTU 15:58
PROVIDERS: ADMIT Student in an Organized Health Care Education/Training Program; ATTEND Student in an Organized Health Care Education/Training Program
PROC: 02HV33Z Insertion of Infusion Device into Superior Vena Cava, Percutaneous Approach (ICD-10-PCS; principal; 2023-11-06)
PROC: B548ZZA Ultrasonography of Superior Vena Cava, Guidance (ICD-10-PCS; 2023-11-06)
DX: N17.9 Acute kidney failure, unspecified (principal); E44.1 Mild protein-calorie malnutrition; N39.0 Urinary tract infection, site not specified; I16.9 Hypertensive crisis, unspecified; I69.351 Hemiplegia and hemiparesis following cerebral infarction affecting right dominant side; I12.9 Hypertensive chronic kidney disease with stage 1 through stage 4 chronic kidney disease, or unspecified chronic kidney disease; E11.22 Type 2 diabetes mellitus with diabetic chronic kidney disease; Z20.822 Contact with and (suspected) exposure to COVID-19; N18.31 Chronic kidney disease, stage 3a; Z96.653 Presence of artificial knee joint, bilateral; R32 Unspecified urinary incontinence; B96.20 Unspecified Escherichia coli [E. coli] as the cause of diseases classified elsewhere; Z68.25 Body mass index [BMI] 25.0-25.9, adult; Z82.49 Family history of ischemic heart disease and other diseases of the circulatory system; Z87.442 Personal history of urinary calculi
CPT/HCPCS: 36415; 71045; 80048; 80053; 80076; 81001; 82550; 82948; 83605; 83735; 83880; 84100; 84439; 84443; 84484; 85025; 87040; 87081; 87086; 87186; 93005; 96361; 96365; 97116; 97163-GP; 97530; 99285; C9113; J0360; J0696; J3475; J7060

== ENCOUNTER 2023-11-16 08:45 | Emergency (ER) | payer MEDICARE, MEDICAID ==
[~2023-11-16] VITALS: Ht 165.1 cm; Wt 71.4 kg
[~2023-11-16 08:45] MED LIST changes: +ATEN25TA2 PO; +ATI.5 PO; +ATOR40TA40 PO; +DIVA-56 PO; +ISOS20TA13 PO; -LISI-953 PO; +LISI40TA8 PO; +ROC1PM IV
[2023-11-16 08:46] VITALS: BP 137/63; PULSE 92; RESP 16; TEMP 97.1; O2SAT 99
[2023-11-16 10:50] VITALS: BP 137/63; PULSE 92; RESP 16; TEMP 97.1; O2SAT 99
== END 2023-11-16 10:50 | disposition home or self-care (01) ==
LOC: MED 08:45
DX: Z45.2 Encounter for adjustment and management of vascular access device (principal); I12.9 Hypertensive chronic kidney disease with stage 1 through stage 4 chronic kidney disease, or unspecified chronic kidney disease; N18.9 Chronic kidney disease, unspecified; Z86.73 Personal history of transient ischemic attack (TIA), and cerebral infarction without residual deficits; Z86.79 Personal history of other diseases of the circulatory system; Z79.899 Other long term (current) drug therapy
CPT/HCPCS: 99281; 99285

== ENCOUNTER 2023-11-23 10:28 | Inpatient (IN) | payer MEDICARE, MEDICAID ==
[~2023-11-23] VITALS: Ht 165.1 cm; Wt 70.3 kg
[2023-11-23 10:30] VITALS: BP 181/86; PULSE 99; RESP 18; TEMP 97.4; O2SAT 99
[2023-11-23 11:02] LABS: BASOPHILS % (AUTO) 0.7 % (0.0-2.0); EOSINOPHILS % (AUTO) 0.9 % (0.0-4.0); HEMATOCRIT 30.7 % (36-48); HEMOGLOBIN 10.6 g/dL (12.0-16.0); LYMPHOCYTES # (AUTO) 1.1 K/uL (2.5-16.5); LYMPHOCYTES % (AUTO) 30.9 % (20.5-51.1); MEAN CORPUSCULAR HEMOGLOBIN 32 pg (27-31); MEAN CORPUSCULAR HGB CONC 35 g/dL (33-37); MEAN CORPUSCULAR VOLUME 93.2 fL (80-94); MONOCYTES # (AUTO) 0.5 K/uL (0.8-1.0); MONOCYTES % (AUTO) 12.9 % (1.7-9.3); NEUTROPHILS % (AUTO) 54.6 % (42.2-75.2); PLATELET COUNT (AUTO) 218 K/uL (140-450); RED CELL DISTRIBUTION WIDTH 14.3 % (11.6-13.7); WHITE BLOOD COUNT (AUTO) 3.6 K/uL (4.8-10.8)
[2023-11-23 11:14] LABS: ANION GAP 11.8 (8-16); CALCIUM 9.4 mg/dL (8.5-10.1); CARBON DIOXIDE 26.1 mmol/L (21-32); CHLORIDE 97 mmol/L (98-107); CREATININE 1.5 mg/dL (0.6-1.3); GLUCOSE 111 mg/dL (74-106); POTASSIUM 4.9 mmol/L (3.5-5.1); SODIUM SERUM 130 mmol/L (136-145); UREA NITROGEN, BLOOD 22 mg/dL (7-18)
[2023-11-23 11:20] LABS: INR 1.11 (0.8-1.2); PARTIAL THROMBOPLASTIN TIME 35.7 secs (22-35.6); PROTHROMBIN TIME 11.6 secs (10.8-13.4)
[2023-11-23 11:23] LABS: ALANINE AMINOTRANSFERASE 18 U/L (12-78); ALBUMIN 3.6 g/dL (3.4-5.0); ALKALINE PHOSPHATASE 60 U/L (50-136); ASPARTATE AMINOTRANSFERASE 23 U/L (15-37); BILIRUBIN,DIRECT 0.2 mg/dL (0.0-0.3); TOTAL BILIRUBIN 0.5 mg/dL (0.0-1.0); TOTAL PROTEIN, SERUM 7.3 g/dL (6.4-8.2)
[2023-11-23 12:13] LABS: APPEARANCE,URINE CLEAR (CLEAR); BILIRUBIN,URINE NEGATIVE (NEGATIVE); BLOOD, URINE NEGATIVE (NEGATIVE); COLOR,URINE YELLOW (YELLOW); LEUKOCYTE ESTERASE ,URINE 1+ (NEGATIVE); NITRITE, URINE NEGATIVE (NEGATIVE); PROTEIN,URINE NEGATIVE (NEGATIVE); UGLUCOSE NEGATIVE (NEGATIVE); UROBILINOGEN,URINE 0.2 EU/dL (0.2 - 1)
[2023-11-23] MEDS ORDERED: hydrALAZINE 20 MG/ML VIAL ONE (12:28)
[2023-11-23 12:30] LABS: BACTERIA,URINE 0-2 /HPF (None Seen); RBC,URINE 0-5 /HPF (0-5); SQUAMOUS EPITHELIAL CELL,UR 0-3 (FEW) /LPF (0-3 (FEW))
[2023-11-23] MEDS: hydrALAZINE 20 MG/ML VIAL IVP ONE (12:32)
[2023-11-23] MEDS: NACL 0.9% 1,000 ML IV ONE (13:03)
[2023-11-23] MEDS ORDERED: ALBUTEROL 0.083% 2.5 MG/3 ML NEBU INH PRN (14:00)
[2023-11-23] MEDS ORDERED: ONDANSETRON 4 MG/2 ML VIAL IVP PRN (14:00)
[2023-11-23] MEDS ORDERED: ACETAMINOPHEN 325 MG TAB PO PRN (14:00)
[2023-11-23] MEDS: LABETALOL 20 MG/4 ML VIAL IVP ONE (14:04)
[2023-11-23] MEDS ORDERED: cefTRIAXone 1,000 MG VIAL ONE (15:34)
[2023-11-23] MEDS ORDERED: HYDROcodone/APAP 5/325 MG 1 TAB TAB ONE (16:10)
[2023-11-23] MEDS ORDERED: NITROGLYCERIN 0.4 MG TAB SL ONE (16:12)
[2023-11-23] MEDS: HYDROcodone/APAP 5/325 MG 1 TAB TAB PO PRN (16:16)
[2023-11-23] MEDS ORDERED: ISOSORBIDE DINITRATE 10 MG TAB ONE (17:09)
[2023-11-23] MEDS: ISOSORBIDE DINITRATE 20 MG TAB PO SCH (17:14)
[2023-11-23 18:20] VITALS: PULSE 63; RESP 13; O2SAT 98
[2023-11-23 21:45] VITALS: PULSE 63; RESP 13; O2SAT 98
[2023-11-24] MEDS: DIVALPROEX 250 MG TABEC PO SCH (00:46)
[2023-11-24] MEDS: LORazepam 0.5 MG TAB PO PRN (00:47)
[2023-11-24] MEDS: APIXABAN 2.5 MG TAB PO SCH (00:48)
[2023-11-24] MEDS ORDERED: hydrALAZINE 20 MG/ML VIAL IVP PRN (01:40)
[2023-11-24 05:37] LABS: BASOPHILS % (AUTO) 1.2 % (0.0-2.0); EOSINOPHILS # (AUTO) 0.1 K/uL (0-0.4); EOSINOPHILS % (AUTO) 1.8 % (0.0-4.0); HEMATOCRIT 27.7 % (36-48); HEMOGLOBIN 9.5 g/dL (12.0-16.0); LYMPHOCYTES # (AUTO) 1.5 K/uL (2.5-16.5); MEAN CORPUSCULAR HEMOGLOBIN 32 pg (27-31); MEAN CORPUSCULAR HGB CONC 35 g/dL (33-37); MEAN CORPUSCULAR VOLUME 93.8 fL (80-94); MONOCYTES # (AUTO) 0.4 K/uL (0.8-1.0); MONOCYTES % (AUTO) 10.5 % (1.7-9.3); NEUTROPHILS # (AUTO) 1.5 K/uL (1.8-7.7); NEUTROPHILS % (AUTO) 44.5 % (42.2-75.2); PLATELET COUNT (AUTO) 190 K/uL (140-450); RED BLOOD CELL COUNT(AUTO) 2.95 MIL/uL (4.20-5.40); RED CELL DISTRIBUTION WIDTH 14.3 % (11.6-13.7); WHITE BLOOD COUNT (AUTO) 3.5 K/uL (4.8-10.8)
[2023-11-24 06:26] LABS: ANION GAP 10.2 (8-16); CALCIUM 9.1 mg/dL (8.5-10.1); CARBON DIOXIDE 25.9 mmol/L (21-32); CHLORIDE 103 mmol/L (98-107); CREATININE 1.4 mg/dL (0.6-1.3); GLUCOSE 82 mg/dL (74-106); POTASSIUM 5.1 mmol/L (3.5-5.1); SODIUM SERUM 134 mmol/L (136-145); UREA NITROGEN, BLOOD 19 mg/dL (7-18)
[2023-11-24 08:00] VITALS: BP 124/57; PULSE 58; PULSE 62; PULSE 64; RESP 15; RESP 16; TEMP 97.4; O2SAT 96; O2SAT 98
[2023-11-24] MEDS: atenoloL 25 MG TAB PO SCH (08:37)
[2023-11-24] MEDS: ASPIRIN 81 MG TAB.CHEW PO SCH (08:39)
[2023-11-24] MEDS: ATORVASTATIN 20 MG TAB PO SCH (08:39)
[2023-11-24 12:00] VITALS: BP 132/64; PULSE 48; PULSE 62; RESP 18; TEMP 98.2; O2SAT 98
[2023-11-24 16:00] VITALS: BP 136/70; PULSE 47; PULSE 62; RESP 18; TEMP 98.2; O2SAT 98
[2023-11-24 20:00] VITALS: BP 144/65; PULSE 54; PULSE 64; PULSE 99; RESP 17; TEMP 97.3; O2SAT 97
[2023-11-25] VITALS: BP 139/58; PULSE 55; PULSE 73; PULSE 90; RESP 18; TEMP 97.4; O2SAT 97
[2023-11-25 04:00] VITALS: BP 148/59; PULSE 51; PULSE 53; RESP 18; TEMP 97.7; O2SAT 99
[2023-11-25 05:49] LABS: BASOPHILS % (AUTO) 0.8 % (0.0-2.0); EOSINOPHILS # (AUTO) 0.1 K/uL (0-0.4); EOSINOPHILS % (AUTO) 3.1 % (0.0-4.0); HEMATOCRIT 26.1 % (36-48); HEMOGLOBIN 9.1 g/dL (12.0-16.0); LYMPHOCYTES # (AUTO) 1.5 K/uL (2.5-16.5); LYMPHOCYTES % (AUTO) 45.1 % (20.5-51.1); MEAN CORPUSCULAR HEMOGLOBIN 33 pg (27-31); MEAN CORPUSCULAR HGB CONC 35 g/dL (33-37); MEAN CORPUSCULAR VOLUME 92.9 fL (80-94); MONOCYTES # (AUTO) 0.4 K/uL (0.8-1.0); MONOCYTES % (AUTO) 10.9 % (1.7-9.3); NEUTROPHILS # (AUTO) 1.3 K/uL (1.8-7.7); NEUTROPHILS % (AUTO) 40.1 % (42.2-75.2); PLATELET COUNT (AUTO) 188 K/uL (140-450); RED BLOOD CELL COUNT(AUTO) 2.81 MIL/uL (4.20-5.40); RED CELL DISTRIBUTION WIDTH 14.3 % (11.6-13.7); WHITE BLOOD COUNT (AUTO) 3.3 K/uL (4.8-10.8)
[2023-11-25 07:04] LABS: CALCIUM 8.9 mg/dL (8.5-10.1); CARBON DIOXIDE 24.9 mmol/L (21-32); CHLORIDE 101 mmol/L (98-107); CREATININE 1.3 mg/dL (0.6-1.3); GLUCOSE 76 mg/dL (74-106); POTASSIUM 4.9 mmol/L (3.5-5.1); SODIUM SERUM 131 mmol/L (136-145); UREA NITROGEN, BLOOD 21 mg/dL (7-18)
[2023-11-25 08:00] VITALS: BP 162/71; PULSE 50; PULSE 51; RESP 17; RESP 18; TEMP 98.1; O2SAT 100; O2SAT 98
[2023-11-25] MEDS: hydrALAZINE 10 MG TAB PO SCH (11:22)
[2023-11-25] MEDS: DOCUSATE SODIUM 100 MG GELCAP PO ONE (11:30)
[2023-11-25] MEDS ORDERED: ATEN25TA7 PO (11:48)
[2023-11-25] MEDS ORDERED: LEVO-481 PO (11:49)
[2023-11-25 13:04] VITALS: BP 160/71; PULSE 51; RESP 18; TEMP 98.1
[2023-11-26] MEDS ORDERED: DOCUSATE SODIUM 100 MG GELCAP PO SCH (09:00)
== END 2023-11-25 13:55 | disposition home or self-care (01) | DRG 683 ==
LOC: MED 10:28 → MTU 14:02
PROVIDERS: ADMIT Student in an Organized Health Care Education/Training Program; ATTEND Student in an Organized Health Care Education/Training Program
DX: N17.9 Acute kidney failure, unspecified (principal); N39.0 Urinary tract infection, site not specified; R65.10 Systemic inflammatory response syndrome (SIRS) of non-infectious origin without acute organ dysfunction; I16.0 Hypertensive urgency; I12.9 Hypertensive chronic kidney disease with stage 1 through stage 4 chronic kidney disease, or unspecified chronic kidney disease; N18.30 Chronic kidney disease, stage 3 unspecified; Z86.73 Personal history of transient ischemic attack (TIA), and cerebral infarction without residual deficits; Z79.899 Other long term (current) drug therapy
CPT/HCPCS: 36415; 70450; 71045; 80048; 80076; 81001; 82570; 83880; 84484; 85025; 85610; 85730; 87040; 87081; 87086; 93005; 96361; 96374; 96375; 99291; J0360; J0696; J3490; J7060

== ENCOUNTER 2024-01-30 10:07 | Emergency (ER) | payer MEDICARE, MEDICAID ==
[~2024-01-30] VITALS: Ht 172.7 cm; Wt 68.0 kg
[~2024-01-30 10:07] MED LIST changes: -ATEN25TA2 PO; +ATEN25TA7 PO; -ATI.5 PO; -ATOR40TA40 PO; -DIVA250E1 PO; -HYDR100T49 PO; +LEVO-481 PO; -LISI40TA8 PO; -ROC1PM IV
[2024-01-30 10:34] VITALS: BP 243/102; PULSE 80; RESP 18; TEMP 98; O2SAT 98
[2024-01-30 11:47] LABS: APPEARANCE,URINE CLEAR (CLEAR); BILIRUBIN,URINE NEGATIVE (NEGATIVE); BLOOD, URINE NEGATIVE (NEGATIVE); COLOR,URINE YELLOW (YELLOW); LEUKOCYTE ESTERASE ,URINE NEGATIVE (NEGATIVE); NITRITE, URINE NEGATIVE (NEGATIVE); PROTEIN,URINE NEGATIVE (NEGATIVE); UGLUCOSE NEGATIVE (NEGATIVE); UROBILINOGEN,URINE 0.2 EU/dL (0.2 - 1)
[2024-01-30] MEDS: hydrALAZINE 20 MG/ML VIAL IVP ONE (12:21)
[2024-01-30 12:23] LABS: FLU A ANTIGEN negative (NEGATIVE); FLU B ANTIGEN negative (NEGATIVE)
[2024-01-30 12:26] LABS: BASOPHILS % (AUTO) 0.4 % (0.0-2.0); EOSINOPHILS # (AUTO) 0.1 K/uL (0-0.4); EOSINOPHILS % (AUTO) 1.6 % (0.0-4.0); HEMATOCRIT 32.6 % (36-48); HEMOGLOBIN 10.9 g/dL (12.0-16.0); LYMPHOCYTES # (AUTO) 1.4 K/uL (2.5-16.5); LYMPHOCYTES % (AUTO) 38.2 % (20.5-51.1); MEAN CORPUSCULAR HEMOGLOBIN 31 pg (27-31); MEAN CORPUSCULAR HGB CONC 34 g/dL (33-37); MEAN CORPUSCULAR VOLUME 91.6 fL (80-94); MONOCYTES # (AUTO) 0.3 K/uL (0.8-1.0); MONOCYTES % (AUTO) 7.3 % (1.7-9.3); NEUTROPHILS % (AUTO) 52.5 % (42.2-75.2); PLATELET COUNT (AUTO) 179 K/uL (140-450); RED BLOOD CELL COUNT(AUTO) 3.55 MIL/uL (4.20-5.40); RED CELL DISTRIBUTION WIDTH 15.6 % (11.6-13.7); WHITE BLOOD COUNT (AUTO) 3.8 K/uL (4.8-10.8)
[2024-01-30 12:34] LABS: ANION GAP 9.9 (8-16); CALCIUM 9.1 mg/dL (8.5-10.1); CARBON DIOXIDE 28.7 mmol/L (21-32); CHLORIDE 105 mmol/L (98-107); CREATININE 1.4 mg/dL (0.6-1.3); GLUCOSE 82 mg/dL (74-106); POTASSIUM 4.6 mmol/L (3.5-5.1); SODIUM SERUM 139 mmol/L (136-145); UREA NITROGEN, BLOOD 21 mg/dL (7-18)
[2024-01-30 12:39] LABS: INR 1.11 (0.8-1.2); PARTIAL THROMBOPLASTIN TIME 34.6 secs (22-35.6); PROTHROMBIN TIME 11.6 secs (10.8-13.4)
[2024-01-30 12:41] LABS: ALBUMIN 3.4 g/dL (3.4-5.0); BILIRUBIN,DIRECT 0.1 mg/dL (0.0-0.3); TOTAL BILIRUBIN 0.5 mg/dL (0.0-1.0); TOTAL PROTEIN, SERUM 7.8 g/dL (6.4-8.2)
[2024-01-30] MEDS ORDERED: LORA10TA19 PO (13:51)
[2024-01-30] MEDS ORDERED: HYDR-2734 TP (13:51)
[2024-01-30 14:00] VITALS: BP 189/72; PULSE 66; RESP 16; TEMP 98; O2SAT 98
== END 2024-01-30 14:00 | disposition home or self-care (01) ==
LOC: MED 10:07
DX: K64.4 Residual hemorrhoidal skin tags (principal); J06.9 Acute upper respiratory infection, unspecified; Z20.822 Contact with and (suspected) exposure to COVID-19; I12.9 Hypertensive chronic kidney disease with stage 1 through stage 4 chronic kidney disease, or unspecified chronic kidney disease; N18.9 Chronic kidney disease, unspecified; E78.5 Hyperlipidemia, unspecified; Z96.653 Presence of artificial knee joint, bilateral; Z86.73 Personal history of transient ischemic attack (TIA), and cerebral infarction without residual deficits; Z79.01 Long term (current) use of anticoagulants; Z79.899 Other long term (current) drug therapy
CPT/HCPCS: 36415; 80048; 80076; 81003; 85025; 85610; 85730; 86886; 86900; 86901; 87426; 87804; 93005; 96374; 99285; J0360